=== PATIENT | female | born 1940 | race Caucasian/White ===

== ENCOUNTER → 2016-11-19 | Outpatient (CLI) | payer MEDICARE ==
--- NOTE | 2016-11-19 12:28 | XR ---
EXAMINATION TYPE: XR thoracic spine complete DATE OF EXAM ORDERED: 11/19/2016 12:23 PM HISTORY: M47.895 spondylosis thoracolumbar region. COMPARISON: None. FINDINGS: There is a mild levoscoliosis. There is a moderate kyphosis of the dorsal spine. Alignment appears normal. No fractures are seen. Th ere is diffuse degenerative disc disease and hypertrophic spondylosis. There is some spondylosis defo rmans in the upper lumbar spine. The pedicles are intact. Paraspinal soft tissues are normal. IMPRESSION: 1. NO ACUTE OSSEOUS LESION. 2. MODERATELY SEVERE DEGENERATIVE CHANGE.
== END | disposition home or self-care (01) ==
LOC: RADXRMAIN 11:54
PROVIDERS: ATTEND Internal Medicine
DX: M47.895 Other spondylosis, thoracolumbar region (principal); M51.34 Other intervertebral disc degeneration, thoracic region
CPT/HCPCS: 72072

== ENCOUNTER → 2016-12-03 | Outpatient (CLI) | payer MEDICARE ==
--- NOTE | 2016-12-03 12:06 | MR ---
EXAMINATION TYPE: MR thoracic spine wo con DATE OF EXAM ORDERED: 12/03/2016 11:53 AM HISTORY: M47.895Other spondylosis, thoracolumbar region. COMPARISON: None. FINDINGS: The spine is curved towards the right in the upper thoracic region. This may be partially secondary to positioning. Vertebral body height and alignment are maintained. There are partial fusions extending from T4 to T6 anteriorly and then T8-T9 anteriorly. There is a broad-based disc displacement at T7-8, mildly defor dirk the thecal sac without cord contact. There is a tiny left paracentral disc protrusion at T10-11 deforming the thecal sac without cord cont act. There is no other significant compressive discopathy. Intervertebral foramina appear well mainta ined. There is hypertrophic spondylosis anteriorly in the lower dorsal spine particularly at T12-L1 but als o at T11-12. The C3 vertebral body has abnormal signal within it. This may be secondary to a large he mangioma. Other causes of signal alteration are not excluded. IMPRESSION: 1. MODERATELY SEVERE DEGENERATIVE CHANGE. 2. MULTILEVEL PARTIAL FUSIONS. 3. DIFFUSE DISC DISPLACEMENT AT T7-8 AND A LEFT PARACENTRAL DISC PROTRUSION AT T10-11 DEFORMING THE T HECAL SAC WITHOUT CORD CONTACT. 4. ABNORMAL SIGNAL WITHIN THE C3 VERTEBRAL BODY. A NUCLEAR MEDICINE WHOLE BODY BONE SCAN WOULD BE SUG GESTED.
== END | disposition home or self-care (01) ==
LOC: RADMRIMAIN 10:58
PROVIDERS: ATTEND Internal Medicine
DX: M47.895 Other spondylosis, thoracolumbar region (principal); M51.24 Other intervertebral disc displacement, thoracic region
CPT/HCPCS: 72146

== ENCOUNTER → 2016-12-15 | Outpatient (CLI) | payer MEDICARE ==
--- NOTE | 2016-12-15 16:04 | NM ---
EXAMINATION TYPE: NM bone scan whole body DATE OF EXAM: 12/15/2016 3:40 PM COMPARISON: NONE HISTORY: R47.13 other spondylosis w/myelopathy cervicothoracic region Delayed whole-body scanning was performed following the injection of 26.7 mCi Tc 99m MDP. Images acq uired 4.5 hours post injection. FINDINGS: Degenerative uptake is seen about the shoulders, sternoclavicular joints, elbows, wrists, cervical, t horacic and lumbar spines. Bilateral total knee arthroplasty identified. Degenerative uptake about th e ankles and mid feet as well. IMPRESSION: Degenerative uptake noted.
== END ==
LOC: RADNMMAIN 09:47
PROVIDERS: ATTEND Internal Medicine
DX: M19.019 Primary osteoarthritis, unspecified shoulder (principal); M19.029 Primary osteoarthritis, unspecified elbow; M47.892 Other spondylosis, cervical region; M51.36 Other intervertebral disc degeneration, lumbar region; M19.079 Primary osteoarthritis, unspecified ankle and foot; M19.039 Primary osteoarthritis, unspecified wrist; M51.34 Other intervertebral disc degeneration, thoracic region; Z96.653 Presence of artificial knee joint, bilateral
CPT/HCPCS: 78306; A9503

== ENCOUNTER → 2017-04-11 | Outpatient (CLI) | payer MEDICARE ==
[2017-04-04 16:00] VITALS: BMI 31.8
[2017-04-11 11:13] VITALS: BP 165/83; PULSE 81; RESP 16; TEMP 97.7
--- NOTE | 2017-04-11 11:44 | P.CONS ---
History of Present Illness - Reason for Consult Consult date: 04/11/17 - Chief Complaint Low back pain - History of Present Illness The patient has chronic lower back pain for at least 2 years now. This pain gets worse by standing and walking around. The patient however does not wake the patient up and it is not associated with any weight loss. The patient denies any numbness or tingling in the lower extremities also she denies any weakness in the lower extremities. There is no bowel or bladder dysfunction. The lumbar spine MRI showed severe degenerative disc disease the lumbar spine. Patient now uses jamir root to help with this pain. The patient lives with her . She uses 1 g of aspirin every day for this pain. Past Medical History Past Medical History: Eye Disorder, Hypertension, Osteoarthritis (OA) Additional Past Medical History / Comment(s): corneal problems-seeing specialist , curvature of spine,back pain History of Any Multi-Drug Resistant Organisms: None Reported Past Surgical History: Adenoidectomy, Cholecystectomy, Hernia Repair, Joint Replacement, Tonsillectomy Additional Past Surgical History / Comment(s): both knees replaced, cataract surg., eye surg. for strabismus Past Anesthesia/Blood Transfusion Reactions: Previous Problems w/ Anesthesia Additional Past Anesthesia/Blood Transfusion Reaction / Comm: slow to wake up Smoking Status: Former smoker - Past Family History Mother Family Medical History: Cancer Medications and Allergies Home Medications Medication Instructions Recorded Confirmed Type Eye Support Vitamin 1 tab PO DAILY 04/04/17 04/11/17 History Losartan [Cozaar] 50 mg PO DAILY 04/04/17 04/11/17 History Multivitamin with Iron 1 each PO DAILY 04/04/17 04/11/17 History [Multivitamins with Iron] Aspirin [Aspirin EC] 1,000 mg PO DAILY PRN 04/11/17 04/11/17 History Cetirizine HCl [Zyrtec] 10 mg PO DAILY PRN 04/11/17 04/11/17 History Non-Formulary Drug [Non Formulary 2 cap PO BID 04/11/17 04/11/17 History Drug] Allergies Allergy/AdvReac Type Severity Reaction Status Date / Time No Known Allergies Allergy Unverified 04/11/17 11:00 Physical Exam Vitals: Vital Signs Temp Pulse Resp BP Pulse Ox 04/11/17 11:08 97.7 F 81 16 165/83 95 The patient is alert oriented 3, in no apparent distress. Neuro exam of the lower extremities showed normal muscle strength and normal knee reflexes however she has absent ankle reflexes bilaterally. Straight leg raising test negative bilaterally. There is no sacroiliac joint tenderness and no greater trochanter tenderness. She does have thoracic kyphosis. She has normal range of motion of the lumbar spine with more pain with extension than with flexion. Facet loading loading test was positive. Assessment and Plan Plan: This is a 77-year-old female with lower back pain due to lumbar degenerative disc disease and lumbar spondylosis without myelopathy. I asked the patient to use Tylenol instead of aspirin to treat her pain however not more than 2 gr a day. The patient also may benefit from getting lumbar medial branch block under fluoroscopic guidance and if it does take at least 50% of the patient's pain then we can plan on doing the radio Frequencyi ablation in the near future for a prolonged period of pain relief. The patient failed to respond to physical therapy previously as she states. The patient thinks that using gingerroot will help her pain and she is willing to try to for a few more weeks before she tries the injection.
== END | disposition home or self-care (01) ==
LOC: PNWHC3 10:31
PROVIDERS: ATTEND Anesthesiology
DX: M51.36 Other intervertebral disc degeneration, lumbar region (principal); M47.816 Spondylosis without myelopathy or radiculopathy, lumbar region; I10 Essential (primary) hypertension; Z79.82 Long term (current) use of aspirin; Z79.899 Other long term (current) drug therapy
CPT/HCPCS: 99211

== ENCOUNTER → 2019-05-22 | Outpatient (CLI) | payer MEDICARE ==
--- NOTE | 2019-05-23 12:20 | BD ---
EXAMINATION TYPE: Axial Bone Density DATE OF EXAM: 05/22/2019 COMPARISON: 07/22/2016 CLINICAL HISTORY: Height: 58 IN Weight: 154 LBS RISK FACTORS HISTORY OF: Active: YES Diet low in dairy products/other sources of calcium: YES Postmenopausal woman: AGE 49 MEDICATIONS: Additional Medications: VITAMINS,BLOOD PRESSURE MEDS, EXAM MEASUREMENTS: Bone mineral densitometry was performed using the [employer]. Bone mineral density as measured about the Lumbar spine is: ----- L1-L4(G/cm2): 1.083 T Score Values are as follows: ----- L2: -1.5 ----- L3: -1.4 ----- L4: -0.1 ----- L1-L4: -0.8 Bone mineral density has: Decreased -11.3% since study of: 07/22/2016 Bone mineral density about the R hip (g/cm2): 0.747 Bone mineral density about the L hip (g/cm2): 0.654 T Score values are as follows: -----R Neck: -2.1 -----L Neck: -2.8 -----R Total: -1.9 -----L Total: -2.1 Bone mineral density has: Increased 4.1% since study of: 07/22/2016 IMPRESSION: Osteopenia of the bilateral femora. NOTE: T-SCORE=SD OF THE YOUNG ADULT MEAN.
== END | disposition home or self-care (01) ==
LOC: RADBDWWP 15:32
PROVIDERS: ATTEND Internal Medicine
DX: M85.852 Other specified disorders of bone density and structure, left thigh (principal); M85.851 Other specified disorders of bone density and structure, right thigh
CPT/HCPCS: 77080

== ENCOUNTER 2021-01-22 06:23 | Observation (INO) | payer MEDICARE ==
--- NOTE | 2021-01-22 06:27 | ED ---
Chest Pain HPI - General Stated Complaint: Chest Pain Time Seen by Provider: 01/22/21 06:26 - Related Data Home Medications Medication Instructions Recorded Confirmed Eye Support Vitamin 1 tab PO DAILY 04/04/17 04/11/17 Losartan [Cozaar] 50 mg PO DAILY 04/04/17 04/11/17 Multivitamin with Iron 1 each PO DAILY 04/04/17 04/11/17 [Multivitamins with Iron] Aspirin [Aspirin EC] 1,000 mg PO DAILY PRN 04/11/17 04/11/17 Cetirizine HCl [Zyrtec] 10 mg PO DAILY PRN 04/11/17 04/11/17 Non Formulary Drug 2 cap PO BID 04/11/17 04/11/17 Allergies Allergy/AdvReac Type Severity Reaction Status Date / Time No Known Allergies Allergy Unverified 04/11/17 11:00 Review of Systems ROS Statement: Those systems with pertinent positive or pertinent negative responses have been documented in the HPI. ROS Other: All systems not noted in ROS Statement are negative. EKG Findings - EKG Comments: EKG Findings:: EKG shows sinus tachycardia 101 [address] 154 QRS 76 QTC 448 Past Medical History Past Medical History: Eye Disorder, Hypertension, Osteoarthritis (OA) Additional Past Medical History / Comment(s): corneal problems-seeing specialist, curvature of spine,back pain History of Any Multi-Drug Resistant Organisms: None Reported Past Surgical History: Adenoidectomy, Cholecystectomy, Hernia Repair, Joint Replacement, Tonsillectomy Additional Past Surgical History / Comment(s): both knees replaced, cataract surg., eye surg. for strabismus Past Anesthesia/Blood Transfusion Reactions: Previous Problems w/ Anesthesia Additional Past Anesthesia/Blood Transfusion Reaction / Comment(s): slow to wake up Past Psychological History: No Psychological Hx Reported Past Alcohol Use History: Occasional Additional Past Alcohol Use History / Comment(s): quit smoking >50 yrs. ago, smoked 4-5 yrs. Past Drug Use History: None Reported - Past Family History Mother Family Medical History: Cancer Course Vital Signs 01/22/21 06:30 Temperature 98.3 F Pulse Rate 104 H Respiratory 18 Rate Blood Pressure 107/86 O2 Sat by Pulse 93 L Oximetry Disposition Clinical Impression: Atypical chest pain, Chest pain Disposition: ADMITTED IP TO THIS HOSP Condition: Fair Is patient prescribed a controlled substance at d/c from ED?: No Referrals: Justo Dahl MD [Primary Care Provider] - 1-2 days
[2021-01-22 07:25] LABS: Basophils % (A) 0 %; Eosinophils % (A) 1 %; HCT 46.1 % (34.0-46.0); HGB 15.3 gm/dL (11.4-16.0); Lymphocytes # (A) 0.5 k/uL (1.0-4.8); Lymphocytes % (A) 7 %; MCHC 33.2 g/dL (31.0-37.0); MCV 93.2 fL (80.0-100.0); Mean Platelet Volume 9.2; Monocytes # (A) 0.1 k/uL (0-1.0); Monocytes % (A) 2 %; Neutrophils # (A) 6.2 k/uL (1.3-7.7); Neutrophils % (A) 90 %; Platelet Count 191 k/uL (150-450); RBC 4.94 m/uL (3.80-5.40); RDW 13.1 % (11.5-15.5); WBC 6.9 k/uL (3.8-10.6)
[2021-01-22] MEDS ORDERED: MORPHINE SULFATE 4 MG/ML SYRINGE IV PRN (07:32)
[2021-01-22] MEDS ORDERED: NITROGLYCERIN SL TABS 0.4 MG TAB SUBLINGUAL PRN (07:32)
[2021-01-22] MEDS ORDERED: ASPIRIN 81 MG PO STA (07:32)
[2021-01-22 07:39] LABS: Partial Thromboplastin Time 22.6 sec (22.0-30.0); Prothrombin Time 10.5 sec (9.0-12.0)
[2021-01-22 07:43] LABS: Potassium 4.1 mmol/L (3.5-5.1)
--- NOTE | 2021-01-22 07:43 | XR ---
EXAMINATION TYPE: XR chest 2V DATE OF EXAM: 01/22/2021 COMPARISON: None HISTORY: 81-year-old female with cough, nauseated shortness of breath TECHNIQUE: Frontal and lateral views of the chest are obtained. FINDINGS: There is a large hiatal hernia with air-fluid level. Heart size appears within normal limi ts. Atherosclerotic aorta. No pleural effusion, focal consolidation or pneumothorax. There is bilater al peribronchial cuffing and prominence of the central pulmonary vasculature. A portion of this may r epresent chronic interstitial lung changes but underlying bronchitis is not excluded. Osteopenia and degenerative changes of the thoracic spine with accentuated kyphosis. IMPRESSION: 1. Large intrathoracic hiatal hernia with air-fluid level. 2. Coarse interstitial markings are likely chronic interstitial lung changes. Mild superimposed bronc hitis with peribronchial cuffing and thickening is not excluded.
[2021-01-22 07:46] LABS: Albumin 4.4 g/dL (3.5-5.0); Calcium 9.8 mg/dL (8.4-10.2); Magnesium 2.2 mg/dL (1.6-2.3); Total Bilirubin 0.6 mg/dL (0.2-1.3)
[2021-01-22] MEDS ORDERED: ONDANSETRON 4 MG/2 ML VIAL IVP PRN (09:38)
[2021-01-22] MEDS: ACETAMINOPHEN TAB 325 MG TAB PO PRN ×2 (09:57→21:26)
[2021-01-22] MEDS: LOSARTAN 50 MG TAB PO SCH ×2 (09:58→21:19)
--- NOTE | 2021-01-22 12:50 | ECHOF ---
Referral Reason:LVF MEASUREMENTS -------- HEIGHT: 132.1 cm WEIGHT: 69.9 kg BP: IVSd: 1.2 cm (0.6 - 1.1) LVIDd: 3.6 cm (3.9 - 5.3) LVPWd: 1.2 cm (0.6 - 1.1) IVSs: 1.4 cm LVIDs: 2.4 cm LVPWs: 1.4 cm LAESV Index (A-L): 23.36 ml/m Ao Diam: 2.3 cm (2.0 - 3.7) AV Cusp: 1.7 cm (1.5 - 2.6) MV EXCURSION: 11.901 mm (> 18.000) MV EF SLOPE: 79 mm/s (70 - 150) EPSS: 0.4 cm MV E Darrell: 0.78 m/s MV DecT: 293 ms MV A Darrell: 1.08 m/s MV E/A Ratio: 0.72 RAP: 5.00 mmHg RVSP: 19.78 mmHg FINDINGS -------- Sinus rhythm. This was a technically good study. LV size, wall thickness and systolic function are normal, with an EF greater than 55%. The left ainsley tricular size is normal. The right ventricle is normal in size. Normal LA size by volume 22+/-6 ml/m2. The right atrial size is normal. There is mild aortic valve sclerosis. There is no evidence of aortic regurgitation. Mild mitral regurgitation is present. Mild tricuspid regurgitation present. Right ventricular systolic pressure is normal at < 35 mmHg. The pulmonic valve was not well visualized. The aortic root size is normal. There is no pericardial effusion. CONCLUSIONS -------- 1. LV size, wall thickness and systolic function are normal, with an EF greater than 55%. 2. The left ventricular size is normal. 3. The right ventricle is normal in size. 4. Normal LA size by volume 22+/-6 ml/m2. 5. The right atrial size is normal. 6. There is mild aortic valve sclerosis. 7. Mild mitral regurgitation is present. 8. Mild tricuspid regurgitation present. 9. The pulmonic valve was not well visualized. 10. The aortic root size is normal. 11. There is no pericardial effusion. WIRE MESH KNITTER: Claire Castrejon RDCS
--- NOTE | 2021-01-22 13:35 | P.HPIM ---
History of Present Illness H&P Date: 01/22/21 Chief Complaint: Chest pain, vomiting HISTORY OF PRESENT ILLNESS This is an 81-year-old female patient of Dr. Marin with past medical history of hypertension, hyperlipidemia, varicose veins. Patient gives history that she developed vomiting that started around 8:30 last night continued every 2 hours until 5:30 in the morning. She also developed chest pain at the same time that was a constant ache. Her daughter states her blood pressure has been low at home and amlodipine was discontinued. She is continued on losartan 50 mg twice daily. Patient has an appointment scheduled with Dr. Bedoya today at 1 PM. She had a last stress test done in the office about one year ago. She complains of little headache. No diarrhea. Nausea seems to be improving. Patient came into the [facility] emergency center for evaluation. Patient was afebrile, heart rate 104, blood pressure 107/86, pulse ox 93% on room air. EKG is sinus rhythm with no acute ST changes. CBC was unremarkable. INR 1.0. Electrolytes were normal. BUN 34 and creatinine 0.89. Blood sugar 170. Patient does not have history of diabetes. Liver function tests were negative. Troponin negative on 2 draws. ProBNP 300. Lipase 114. Coronavirus PCR not detected. Echocardiogram reveals EF greater than 55%, mild aortic valve sclerosis, mild mitral regurgitation, mild tricuspid regurgitation. Chest x-ray reveals large intrathoracic hiatal hernia. Coarse interstitial markings likely chronic interstitial lung changes. Mild superimposed bronchitis with peribronchial cuffing and thickening is not excluded. REVIEW OF SYSTEMS Constitutional: No fever, no chills, no night sweats. No weight change. No weakness, fatigue or lethargy. No daytime sleepiness. EENT: No headache. No blurred vision or double vision, no loss of vision. No loss of Hearing, no ringing in the ears, no dizziness. No nasal drainage or congestion. No epistaxis. No sore throat. Lungs: No shortness of breath, cough, no sputum production. No wheezing. Cardiovascular: No chest pain, no lower extremity edema. No palpitations. No paroxysmal nocturnal dyspnea. No orthopnea. No lightheadedness or dizziness. No syncopal episodes. Abdominal: No abdominal pain. No nausea, vomiting. No diarrhea. No constipation. No bloody or tarry stools.. No loss of appetite. Genitourinary: No dysuria, increased frequency, urgency. No urinary retention. Musculoskeletal: No myalgias. No muscle weakness, no gait dysfunction, no frequent falls. No back pain. No neck pain. Integumentary: No wounds, no lesions. No rash or pruritus. No unusual bruising. No change in hair or nails. Neurologic: No aphasia. No facial droop. No change in mentation. No head injury. No headache. No paralysis. No paresthesia. Psychiatric: No depression. No anxiety. No mood swings. Endocrine: No abnormal blood sugars. No weight change. No excessive sweating or thirst. No cold intolerance. 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 No alcohol use, marijuana one he use, illicit drug use. FAMILY HISTORY Father at age 45 from diverticulitis and peritonitis. Mother at age 81 from Parkinson's and heart failure. Patient has 2 brothers and one has coronary artery disease and the other with COPD. Patient has one sister and she is alive with history of Parkinson's. Patient has 4 sons with no major medical problems. PHYSICAL EXAMINATION Gen: This is an 81-year-old female. Patient is resting on the ER stretcher and appears to be comfortable and in no acute distress. [id number] is at the bedside. HEENT: Head is atraumatic, normocephalic. Pupils equal, round. Sclerae is anicteric. NECK: Supple. No JVD. No lymphadenopathy. No thyromegaly. LUNGS: Clear to auscultation. No wheezes or rhonchi. No intercostal retractions. HEART: First heart sound is depressed second heart sound is normal. There is a 2/6 systolic ejection murmur at the left sternal border. No S3, S4. ABDOMEN: Soft. Bowel sounds are present. No masses. No abdominal tenderness. EXTREMITIES: No pedal edema. No calf tenderness. Dorsalis pedis +2 bilaterally . NEUROLOGICAL: Patient is awake, alert and oriented x3. Cranial nerves 2 through 12 are grossly intact. ASSESSMENT AND PLAN 1. Chest pain. Repeat troponin, consult cardiology. 2. Vomiting of unclear etiology, possible viral gastritis, resolved. 3. Hypertension with recent low blood pressure readings. Patient is off amlodipine. Continue losartan at 50 mg twice daily with parameters. 4. Hyperlipidemia. Continue low-cholesterol diet, exercise and weight loss. 5. Varicose veins of the bilateral lower extremities, stable. JERICHO hose. 6. Spondylosis of the lumbar sacral spine, stable. 7. Gastroesophageal reflux disease and hiatal hernia. Protonix 40 mg daily. 8. DVT prophylaxis. Heparin subcu. Patient placed as an observation status. DISCHARGE PLAN Home. Impression and plan of care have been directed as dictated by the signing physician. Parul Roberts nurse practitioner acting as scribe for signing physician. Past Medical History Past Medical History: Eye Disorder, Hypertension, Osteoarthritis (OA) Additional Past Medical History / Comment(s): corneal problems-seeing specialist, curvature of spine,back pain History of Any Multi-Drug Resistant Organisms: None Reported Past Surgical History: Adenoidectomy, Cholecystectomy, Hernia Repair, Joint Replacement, Tonsillectomy Additional Past Surgical History / Comment(s): both knees replaced, cataract surg., eye surg. for strabismus Past Anesthesia/Blood Transfusion Reactions: Previous Problems w/ Anesthesia Additional Past Anesthesia/Blood Transfusion Reaction / Comment(s): slow to wake up Past Psychological History: No Psychological Hx Reported Past Alcohol Use History: Occasional Additional Past Alcohol Use History / Comment(s): quit smoking >50 yrs. ago, smoked 4-5 yrs. Past Drug Use History: None Reported - Past Family History Mother Family Medical History: Cancer Medications and Allergies Home Medications Medication Instructions Recorded Confirmed Type Losartan [Cozaar] 50 mg PO BID 04/04/17 04/11/17 History Furosemide [Lasix] 40 mg PO DAILY 01/22/21 01/22/21 History Potassium Chloride [Klor-Con 20] 20 meq PO DAILY 01/22/21 01/22/21 History Allergies Allergy/AdvReac Type Severity Reaction Status Date / Time No Known Allergies Allergy Verified 01/22/21 07:57 Physical Exam Vitals: Vital Signs Temp Pulse Resp BP Pulse Ox 01/22/21 06:30 98.3 F 104 H 18 107/86 93 L Intake and Output 01/21/21 01/22/21 01/22/21 22:59 06:59 14:59 Other: Weight 69.853 kg Results CBC & Chem 7: 01/22/21 07:08 01/22/21 07:08 Labs: Abnormal Lab Results - Last 24 Hours (Table) 01/22/21 01/22/21 Range/Units 07:08 07:08 Hct 46.1 H (34.0-46.0) % Lymphocytes # 0.5 L (1.0-4.8) k/uL BUN 34 H (7-17) mg/dL Glucose 170 H (74-99) mg/dL
[2021-01-22 17:04] LABS: Hemoglobin A1C 5.5 % (4.0-6.0)
--- NOTE | 2021-01-22 19:28 | CONS ---
CONSULTATION Anahi is an 81-year-old lady with history of hypertension who presents to the hospital with symptoms of chest pain. Her chest discomfort is sharp, precordial, associated with some nausea and vomiting. At the time of my evaluation, she appears comfortable at rest and did not seem to be in any distress. EKG revealed sinus tachycardia without significant ST-T wave changes. First set of cardiac enzymes was negative. BNP was normal. Hemoglobin was normal. Given the unexplained chest discomfort, I advised the patient to have further troponins done, obtain an echocardiogram and schedule her for a stress test tomorrow. PAST MEDICAL HISTORY: Significant for hypertension. CURRENT MEDICATIONS: Include Lasix, potassium, losartan 50 b.i.d. ALLERGIES: There are no known drug allergies. FAMILY HISTORY: Negative for premature coronary artery disease. SOCIAL HISTORY: Negative for smoking, EtOH abuse, or drug abuse. REVIEW OF SYSTEMS: HEENT is unremarkable. CARDIAC as described above. RESPIRATORY negative. GI negative. negative. ALLERGY/IMMUNOLOGY: None. SKIN negative. MUSCULOSKELETAL negative. ENDOCRINE negative. HEMATOLOGICAL: Negative. DERM negative. CONSTITUTIONAL negative. ONCOLOGICAL negative. THROUGH FREIGHT ENGINEER: Negative. PHYSICAL EXAMINATION: Patient is comfortable at rest. Afebrile. Heart rate is 76 beats per minute. Blood pressure is 130/76, respiratory rate is 18. O2 saturation is 96% on room air. There is no jugular venous distention. Carotid upstroke is normal. There is no bruit. Chest exam reveals good air entry bilaterally. Heart exam reveals first and second heart sounds. No gallop. No murmur. ABDOMEN: Soft. Exam of extremities did not reveal any edema. Peripheral pulses are felt. LABS: Labs show a hemoglobin of 15.3, potassium is 4.1. Troponin is negative. Coronavirus test is negative. ASSESSMENT: Precordial chest pain. PLAN: I will rule out myocardial infarction and schedule her for a stress echo tomorrow. MMODL / IJN: [id number] /
[2021-01-22] MEDS: HEPARIN SODIUM,PORCINE/PF 5,000 UNIT/0.5 ML SYRINGE SQ SCH (21:19)
[2021-01-23] MEDS ORDERED: DOBUTamine DRIP for NUC MED 500 MG in DEXTROSE/WATER 1 250ML.BAG IV PRN (06:00)
[2021-01-23] MEDS: ACETAMINOPHEN TAB 325 MG TAB PO PRN (07:10)
[2021-01-23] MEDS ORDERED: PANTOPRAZOLE 40 MG TABLET PO SCH (07:30)
[2021-01-23 08:16] VITALS: TEMP 97.9
[2021-01-23] MEDS ORDERED: ASPIRIN 325 MG TAB PO SCH (09:00)
[2021-01-23 11:39] VITALS: BP 125/83; PULSE 79; RESP 17
[2021-01-23] MEDS: HEPARIN SODIUM,PORCINE/PF 5,000 UNIT/0.5 ML SYRINGE SQ SCH (11:40)
[2021-01-23] MEDS: LOSARTAN 50 MG TAB PO SCH (11:40)
--- NOTE | 2021-01-23 12:43 | P.PN ---
Subjective This is a pleasant 81-year-old female past medical history significant for hypertension. She is seen and examined resting comfortably in no acute distress. She has no symptoms of chest discomfort, shortness of breath, dizziness or palpitations. She states she slept well. Blood pressure 125/83 heart rate 79 afebrile maintaining oxygen saturation on room air. Laboratory data reviewed, cardiac enzymes negative 3 and hemoglobin A1c 5.5. Echocardiogram obtained reveals preserved LV systolic function with ejection fraction greater than 55%, mild MR and mild TR noted. GENERAL: Well-appearing, well-nourished and in no acute distress. NECK: Supple without JVD or thyromegaly. LUNGS: Breath sounds clear to auscultation bilaterally. Respiration equal and unlabored. No wheezes, rales or rhonchi. HEART: Regular rate and rhythm without murmurs, rubs or gallops. S1 and S2 heard. EXTREMITIES: Normal range of motion, no edema. No clubbing or cyanosis. Peripheral pulses intact. ASSESSMENT Chest pain Hypertension PLAN Dobutamine stress echocardiogram obtained today was negative for evidence of stress-induced ischemia. The patient is stable to be discharged home and follow-up in the office in 2 weeks. Nurse Practitioner note has been reviewed, I agree with a documented findings and plan of care. Patient was seen and examined. Objective - Vital Signs Vital signs: Vital Signs Temp 97.9 F 01/23/21 11:36 Pulse 79 01/23/21 11:36 Resp 17 01/23/21 11:36 BP 125/83 01/23/21 11:36 Pulse Ox 93 L 01/23/21 11:36 Intake & Output 01/22/21 01/23/21 01/23/21 18:59 06:59 18:59 Weight 69.853 kg 69.85 kg Other: # Voids 1 - Labs CBC & Chem 7: 01/22/21 07:08 01/22/21 07:08
[2021-01-23 13:30] LABS: Chol/HDL Ratio 2.86; Cholesterol 220 mg/dL (0-200); Triglycerides <50.0 mg/dL (0.0-149.0)
--- NOTE | 2021-01-23 17:00 | ECHOS ---
STRESS ECHOCARDIOGRAM LUMASON: N/A Vial INDICATIONS: Chest pain. MEDICATIONS: BASELINE HEART RATE: 71 BASELINE BLOOD PRESSURE: 147/78 MAXIMUM HEART RATE: 127 MAXIMUM BLOOD PRESSURE: 147/78 85% MPHR: 117 100% MPHR: 138 METS: N/A MAXIMUM STAGE REACHED: TOTAL EXERCISE TIME: 10:30 CLINICAL INFORMATION: Baseline EKG shows sinus rhythm, normal axis, normal intervals. Patient was given intravenous dobutamine over a period of 10 1/2 minutes as per protocol, achieving 93% of predicted maximal heart rate without chest pain or diagnostic ST-segment depression. Baseline echo shows normal left ventricular size, wall motion and systolic function. Post dobutamine infusion there is normal hyperdynamic response of all segments of myocardium noted. CONCLUSIONS: 1. Negative stress test by EKG criteria. 2. Negative Dobutamine stress echo. MMODL / IJN: [id number] /
--- NOTE | 2021-01-24 07:20 | DS ---
DISCHARGE SUMMARY DATE OF SERVICE: 01/23/2021 Please note I am covering for Dr. Dahl. FINAL DIAGNOSIS: 1. Chest pain. Myocardial function ruled out. Possibly musculoskeletal with negative stress test. 2. Vomiting possibly acute gastritis or hiatal hernia. 3. Hypertension. 4. Hyperlipidemia. 5. History of varicose veins. 6. Spondylosis. 7. History of gastroesophageal reflux disease. DISCHARGE DISPOSITION: The patient will be discharged in stable condition with guarded prognosis. Cleared by Cardiology. HISTORY OF PRESENT ILLNESS: This 81-year-old woman with a past medical history of multiple medical problems was admitted with left-sided chest pain, multiple symptomatology as mentioned earlier. Myocardial infarction ruled out. Cardiology saw the patient. A stress test was done. Final report is pending at this time but however the patient was cleared. Per Cardiology, dobutamine stress echo was negative and the patient discharged in stable condition. DISCHARGE INSTRUCTIONS: Diet is cardiac. Activity limited until followup. Follow up with Dr. Dahl in 2-3 days. Follow with Cardiology as recommended. DISCHARGE MEDICATIONS: 1. Cozaar 50 mg p.o. b.i.d. 2. K-Dur 20 mg p.o. daily. 3. Lasix 40 mg p.o. daily. 4. Protonix 40 mg p.o. daily. MMODL / IJN: [id number] /
== END 2021-01-23 13:30 ==
LOC: EC 06:23 → 6NMEDSUR 07:02
PROVIDERS: ADMIT Internal Medicine; ATTEND Internal Medicine
DX: R07.89 Other chest pain (principal); R11.2 Nausea with vomiting, unspecified; I10 Essential (primary) hypertension; R03.1 Nonspecific low blood-pressure reading; I08.3 Combined rheumatic disorders of mitral, aortic and tricuspid valves; K21.9 Gastro-esophageal reflux disease without esophagitis; M47.16 Other spondylosis with myelopathy, lumbar region; K44.9 Diaphragmatic hernia without obstruction or gangrene; R51.9 Headache, unspecified; R00.0 Tachycardia, unspecified; H18.9 Unspecified disorder of cornea; M19.90 Unspecified osteoarthritis, unspecified site; M43.9 Deforming dorsopathy, unspecified; I70.0 Atherosclerosis of aorta; E78.5 Hyperlipidemia, unspecified; I83.90 Asymptomatic varicose veins of unspecified lower extremity; Z20.822 Contact with and (suspected) exposure to COVID-19; Z79.82 Long term (current) use of aspirin; Z79.899 Other long term (current) drug therapy; Z90.49 Acquired absence of other specified parts of digestive tract; Z87.891 Personal history of nicotine dependence; Z98.49 Cataract extraction status, unspecified eye; Z96.653 Presence of artificial knee joint, bilateral; Z90.711 Acquired absence of uterus with remaining cervical stump; Z98.890 Other specified postprocedural states; Z82.0 Family history of epilepsy and other diseases of the nervous system; Z82.49 Family history of ischemic heart disease and other diseases of the circulatory system; Z82.5 Family history of asthma and other chronic lower respiratory diseases; Z83.79 Family history of other diseases of the digestive system; Z80.9 Family history of malignant neoplasm, unspecified
CPT/HCPCS: 96372 ×2; 93005 ×2; 96374; 99285; 36415; 93306; 93351; 83880; 80061; 80053; 83690; 83735; 84484; 85025; 85610; 85730; 83036; 87635; 71046; G0378 ×2; J1250; J2405; J1644 ×2

== ENCOUNTER 2022-05-06 07:29 | Inpatient (IN) | payer MEDICARE ==
[2022-05-06] MEDS ORDERED: SODIUM CHLORIDE 0.9% 500 ML 500 ML IV STA (07:37)
[2022-05-06] MEDS ORDERED: METOCLOPRAMIDE 5 MG/ML 2 ML VIAL IVP STA (07:37)
[2022-05-06] MEDS ORDERED: FAMOTIDINE 20 MG/2 ML VIAL IV STA (07:38)
--- NOTE | 2022-05-06 07:45 | ED ---
Nausea/Vomiting/Diarrhea HPI - General Chief complaint: Nausea/Vomiting/Diarrhea Stated complaint: vomiting Time Seen by Provider: 05/06/22 07:30 Source: patient, family (son), RN notes reviewed Limitations: no limitations - History of Present Illness Initial comments: This is an 82-year-old female who presents to the emergency department for nausea and vomiting. States that symptoms started last night and she is unable to keep anything down. She went to [facility] for lunch yesterday and had a chicken sandwich. She ate half of it there and brought half of it home. She began vomiting shortly after she ate the second half at home. She is unsure if this may be related to food poisoning or another problem. She has pain in the center of the abdomen, which she attributes to all of the vomiting. Denies any changes in bowel movements. EMS noted that the patient had an oxygen saturation between 88 and 92% on arrival. They subsequently placed her on 2 L of oxygen v ia nasal cannula. She was started on 500 mL of normal saline and given a dose of Zofran by EMS. Despite the Zofran, she states that she continues to feel nauseous. Patient states that she does have problems breathing every now and then, but has not been diagnosed with any pulmonary conditions. Denies any chest pain. Denies any fevers, chills, sore throat, cough, chest pain, palpitations, back pain, or headaches. MD complaint: nausea, vomiting Onset/Timin -: days(s) Associated Abdominal Pain: Yes Location: periumbilical Context: possible food poisoning - Related Data Home Medications Medication Instructions Recorded Confirmed Losartan [Cozaar] 50 mg PO BID 04/04/17 05/06/22 Furosemide [Lasix] 40 mg PO DAILY 01/22/21 05/06/22 Potassium Chloride [Klor-Con 20] 20 meq PO DAILY 01/22/21 05/06/22 Cetirizine HCl [Zyrtec] 10 mg PO DAILY PRN 05/06/22 05/06/22 Allergies Allergy/AdvReac Type Severity Reaction Status Date / Time No Known Allergies Allergy Verified 05/06/22 10:54 Review of Systems ROS Statement: Those systems with pertinent positive or pertinent negative responses have been documented in the HPI. ROS Other: All systems not noted in ROS Statement are negative. Past Medical History Past Medical History: Eye Disorder, Hypertension, Osteoarthritis (OA) Additional Past Medical History / Comment(s): corneal problems-seeing specialist, curvature of spine,back pain History of Any Multi-Drug Resistant Organisms: None Reported Past Surgical History: Adenoidectomy, Cholecystectomy, Hernia Repair, Joint Replacement, Tonsillectomy Additional Past Surgical History / Comment(s): both knees replaced, cataract surg., eye surg. for strabismus Past Anesthesia/Blood Transfusion Reactions: Previous Problems w/ Anesthesia Additional Past Anesthesia/Blood Transfusion Reaction / Comment(s): slow to wake up Past Psychological History: No Psychological Hx Reported Past Alcohol Use History: Occasional Additional Past Alcohol Use History / Comment(s): quit smoking >50 yrs. ago, smoked 4-5 yrs. Past Drug Use History: None Reported - Past Family History Mother Family Medical History: Cancer General Exam General appearance: alert, other (drowsy) Head exam: Present: atraumatic, normocephalic, normal inspection Respiratory exam: Present: normal lung sounds bilaterally. Absent: respiratory distress, wheezes, rales, rhonchi, stridor Cardiovascular Exam: Present: regular rate, normal rhythm, normal heart sounds. Absent: systolic murmur, diastolic murmur, rubs, gallop, clicks GI/Abdominal exam: Present: soft, hyperactive bowel sounds. Absent: distended, tenderness, guarding, rebound, rigid Neurological exam: Present: alert, oriented X3, CN II-XII intact Psychiatric exam: Present: normal affect, normal mood Skin exam: Present: warm, dry, intact, normal color. Absent: rash Course Vital Signs 05/06/22 05/06/22 05/06/22 07:36 07:52 08:15 Temperature 98.5 F Pulse Rate 99 97 Respiratory 18 18 Rate Blood Pressure 184/104 154/86 O2 Sat by Pulse 90 L 97 96 Oximetry 05/06/22 05/06/22 05/06/22 09:15 10:15 11:30 Temperature Pulse Rate 98 96 90 Respiratory 18 18 18 Rate Blood Pressure 156/76 165/92 162/93 O2 Sat by Pulse 96 96 95 Oximetry 05/06/22 12:15 Temperature Pulse Rate 96 Respiratory 18 Rate Blood Pressure 147/85 O2 Sat by Pulse 92 L Oximetry Medical Decision Making - Medical Decision Making This is an 82-year-old female who presents to the emergency department for nausea and vomiting. CBC reveals leukocytosis. Patient was given an additional 500 mL of normal saline and a dose of Reglan. Chest x-ray obtained due to the hypoxemia. Chest x-ray revealed concerns for a CHF exacerbation due to card iomegaly and bilateral mild interstitial infiltrates. Patient continued to have nausea and increasing abdominal pain despite the Zofran and Reglan. Computed tomography scan of the abdomen and pelvis was obtained, revealing concerns for a gastric volvulus. I spoke with on-call general surgery, Dr. Fregoso, who advised I speak with Dr. Cotton, as he does not perform these procedures. I spoke with Dr. Cotton, who advised the patient have an NG tube placed with admission to him for surgical intervention. This case was discussed in detail with the attending ED physician. Presentation, findings, and treatment plan discussed in detail as well. - Lab Data Result diagrams: 05/06/22 07:47 05/06/22 07:47 Lab Results 05/06/22 05/06/22 05/06/22 Range/Units 07:47 07:47 07:47 WBC 11.9 H (3.8-10.6) k/uL RBC 4.89 (3.80-5.40) m/uL Hgb 15.0 (11.4-16.0) gm/dL Hct 47.2 H (34.0-46.0) % MCV 96.4 (80.0-100.0) fL MCH 30.6 (25.0-35.0) pg MCHC 31.8 (31.0-37.0) g/dL RDW 12.7 (11.5-15.5) % Plt Count 186 (150-450) k/uL MPV 9.6 Neutrophils % 90 % Lymphocytes % 6 % Monocytes % 4 % Eosinophils % 0 % Basophils % 0 % Neutrophils # 10.7 H (1.3-7.7) k/uL Lymphocytes # 0.7 L (1.0-4.8) k/uL Monocytes # 0.4 (0-1.0) k/uL Eosinophils # 0.0 (0-0.7) k/uL Basophils # 0.0 (0-0.2) k/uL Sodium 142 (137-145) mmol/L Potassium 3.9 (3.5-5.1) mmol/L Chloride 103 (98-107) mmol/L Carbon Dioxide 26 (22-30) mmol/L Anion Gap 13 mmol/L BUN 21 H (7-17) mg/dL Creatinine 0.83 (0.52-1.04) mg/dL Est GFR (CKD-EPI)AfAm 76 (>60 ml/min/1.73 sqM) Est GFR (CKD-EPI)NonAf 66 (>60 ml/min/1.73 sqM) Glucose 204 H (74-99) mg/dL Calcium 9.1 (8.4-10.2) mg/dL Total Bilirubin 0.7 (0.2-1.3) mg/dL AST 27 (14-36) U/L ALT 15 (4-34) U/L Alkaline Phosphatase 78 (38-126) U/L Troponin I (0.000-0.034) ng/mL NT-Pro-B Natriuret Pep pg/mL Total Protein 6.5 (6.3-8.2) g/dL Albumin 4.2 (3.5-5.0) g/dL Amylase 52 (30-110) U/L Lipase 49 (23-300) U/L Urine Color Yellow Urine Appearance Clear (Clear) Urine pH 5.0 (5.0-8.0) Ur Specific [place] 1.028 (1.001-1.035) Urine Protein 1+ H (Negative) Urine Glucose (UA) Negative (Negative) Urine Ketones 1+ H (Negative) Urine Blood Negative (Negative) Urine Nitrite Negative (Negative) Urine Bilirubin Negative (Negative) Urine Urobilinogen <2.0 (<2.0) mg/dL Ur Leukocyte Esterase Negative (Negative) Urine WBC 1 (0-5) /hpf Ur Squamous Epith Cells 1 (0-4) /hpf Hyaline Casts 1 (0-2) /lpf Urine Mucus Rare H (None) /hpf Coronavirus (PCR) (Not Detectd) 05/06/22 05/06/22 05/06/22 Range/Units 07:47 07:47 07:47 WBC (3.8-10.6) k/uL RBC (3.80-5.40) m/uL Hgb (11.4-16.0) gm/dL Hct (34.0-46.0) % MCV (80.0-100.0) fL MCH (25.0-35.0) pg MCHC (31.0-37.0) g/dL RDW (11.5-15.5) % Plt Count (150-450) k/uL MPV Neutrophils % % Lymphocytes % % Monocytes % % Eosinophils % % Basophils % % Neutrophils # (1.3-7.7) k/uL Lymphocytes # (1.0-4.8) k/uL Monocytes # (0-1.0) k/uL Eosinophils # (0-0.7) k/uL Basophils # (0-0.2) k/uL Sodium (137-145) mmol/L Potassium (3.5-5.1) mmol/L Chloride (98-107) mmol/L Carbon Dioxide (22-30) mmol/L Anion Gap mmol/L BUN (7-17) mg/dL Creatinine (0.52-1.04) mg/dL Est GFR (CKD-EPI)AfAm (>60 ml/min/1.73 sqM) Est GFR (CKD-EPI)NonAf (>60 ml/min/1.73 sqM) Glucose (74-99) mg/dL Calcium (8.4-10.2) mg/dL Total Bilirubin (0.2-1.3) mg/dL AST (14-36) U/L ALT (4-34) U/L Alkaline Phosphatase (38-126) U/L Troponin I 0.023 (0.000-0.034) ng/mL NT-Pro-B Natriuret Pep 702 pg/mL Total Protein (6.3-8.2) g/dL Albumin (3.5-5.0) g/dL Amylase (30-110) U/L Lipase (23-300) U/L Urine Color Urine Appearance (Clear) Urine pH (5.0-8.0) Ur Specific [place] (1.001-1.035) Urine Protein (Negative) Urine Glucose (UA) (Negative) Urine Ketones (Negative) Urine Blood (Negative) Urine Nitrite (Negative) Urine Bilirubin (Negative) Urine Urobilinogen (<2.0) mg/dL Ur Leukocyte Esterase (Negative) Urine WBC (0-5) /hpf Ur Squamous Epith Cells (0-4) /hpf Hyaline Casts (0-2) /lpf Urine Mucus (None) /hpf Coronavirus (PCR) Not Detected (Not Detectd) - Radiology Data Radiology results: report reviewed, image reviewed Disposition Clinical Impression: Acute gastric volvulus Disposition: ADMITTED IP TO THIS HOSP
[2022-05-06 08:17] LABS: Basophils % (A) 0 %; Eosinophils % (A) 0 %; HCT 47.2 % (34.0-46.0); Lymphocytes # (A) 0.7 k/uL (1.0-4.8); Lymphocytes % (A) 6 %; MCH 30.6 pg (25.0-35.0); MCHC 31.8 g/dL (31.0-37.0); MCV 96.4 fL (80.0-100.0); Mean Platelet Volume 9.6; Monocytes # (A) 0.4 k/uL (0-1.0); Monocytes % (A) 4 %; Neutrophils # (A) 10.7 k/uL (1.3-7.7); Neutrophils % (A) 90 %; Platelet Count 186 k/uL (150-450); RBC 4.89 m/uL (3.80-5.40); RDW 12.7 % (11.5-15.5); WBC 11.9 k/uL (3.8-10.6)
--- NOTE | 2022-05-06 08:21 | XR ---
EXAMINATION TYPE: XR chest 2V DATE OF EXAM: 05/06/2022 COMPARISON: Chest x-ray January 22, 2021 HISTORY: Difficulty in breathing. TECHNIQUE: Frontal and lateral views of the chest are obtained. FINDINGS: The osseous structures remain demineralized. Exaggerated thoracic kyphosis redemonstrated. Cholecystectomy clips noted on lateral view. Retrocardiac opacity consistent large hiatal hernia or intrathoracic stomach appears even more prominent from prior. There is new cardiomegaly with increase d markings bilaterally. No pleural effusion or pneumothorax is present. IMPRESSION: Findings consistent with CHF exacerbation as there is cardiomegaly with bilateral mild i nterstitial edema noted. Correlate clinically.
[2022-05-06 08:25] LABS: Albumin 4.2 g/dL (3.5-5.0); Calcium 9.1 mg/dL (8.4-10.2); Potassium 3.9 mmol/L (3.5-5.1); Total Bilirubin 0.7 mg/dL (0.2-1.3); Total Protein 6.5 g/dL (6.3-8.2)
[2022-05-06 09:20] LABS: Appearance,Urine Clear (Clear); Bilirubin,Urine Negative (Negative); Blood,Urine Negative (Negative); Color,Urine Yellow; Glucose,Urine (UA) Negative (Negative); Hyaline Casts,Urine 1 /lpf (0-2); Ketones,Urine 1+ (Negative); Leukocyte Esterase,Urine Negative (Negative); Mucus,Urine Rare /hpf; Nitrite,Urine Negative (Negative); Protein,Urine 1+ (Negative); Specific Gravity,Urine 1.028 (1.001-1.035); Squamous Epithelial Cell,Urine 1 /hpf (0-4); Urobilinogen,Urine <2.0 mg/dL (<2.0); WBC,Urine 1 /hpf (0-5)
[2022-05-06] MEDS ORDERED: ONDANSETRON 4 MG/2 ML VIAL IVP STA (09:32)
[2022-05-06] MEDS ORDERED: KETOROLAC 15 MG/ML 1 ML VIAL IVP STA (09:32)
--- NOTE | 2022-05-06 10:21 | CT ---
EXAMINATION TYPE: CT abdomen pelvis w con DATE OF EXAM: 05/06/2022 HISTORY: abdominal pain, nausea, vomiting CT DLP: 808.2mGycm Automated Exposure Control for Dose Reduction was Utilized. CONTRAST: CT scan of the abdomen and pelvis is performed with IV Contrast, patient injected with 100 mL of Isov ue 300. COMPARISON: None. FINDINGS: LUNG BASES: Cardiomegaly is present. Calcification at the level of the aortic valve. LIVER/GB: Cholecystectomy clips. PANCREAS: Mild to moderate generalized atrophy with some distal body/tail calcifications. SPLEEN: No significant abnormality is seen. ADRENALS: No significant abnormality is seen. KIDNEYS: Symmetric cortical medullary uptake and excretion with right hilar fullness suspected centra l parapelvic cyst. No right-sided hydroureter. BOWEL: Prominent diverticulosis left and sigmoid colon. Some scattered diverticula in the transverse colon. No CT evidence for acute diverticulitis. No suspicious small or large bowel dilatation. Surgic al clip right lower quadrant coronal image 54. Large hiatal hernia confirmed as seen on recent ultrasound. There is fluid distended stomach above an d below the diaphragm. And the gastroduodenal junction appears to right aspect of the large hiatal he rnia and is nondistended from level of the diaphragm into the duodenal sweep. Distal esophagus juncti on with the stomach is likely to left of midline coronal image 60 on the superior portion of the imag es. There is likely abnormal twisting of the stomach given the fluid-filled dilated portion below the diaphragm. UTERUS/ADNEXA: Uterus surgically absent or markedly atrophic. Scattered bilateral pelvic phleboliths are seen. LYMPH NODES: No greater than 1cm abdominal or pelvic lymph nodes are appreciated. OSSEOUS STRUCTURES: Underlying levoconvex scoliosis. Osseous structures are demineralized. Moderate t o severe disc space narrowing with vacuum disc phenomenon at L5-S1 level. Multilevel spurring in the thoracolumbar spine. Moderate disc space narrowing and spurring left L4-L5 levels OTHER: Small fat-containing umbilical hernia. Below this there is a larger [place] ventral wall her corby containing fat along with tiny mesenteric vessels and nondilated small bowel loop just left of mi dline IMPRESSION: Large hiatal hernia with fluid dilated stomach above and below diaphragm. There is abnorm al twisting as the gastroduodenal junction is above the diaphragm and the transition point as there i s no dilatation of duodenal sweep and distal bowel loops. This is likely being compressed by the brooke iated dilated fluid-filled stomach at level of diaphragmatic hiatus. Surgical consultation is advised .
[2022-05-06] MEDS ORDERED: HYDROmorphone 0.5 MG/0.5 ML SYRINGE IVP STA (10:43)
[2022-05-06] MEDS ORDERED: HYDROmorphone 1 MG/ML 1 ML SYRINGE IVP PRN (11:07)
[2022-05-06] MEDS ORDERED: NALOXONE 0.4 MG/ML 1 ML VIAL IV PRN (11:07)
[2022-05-06] MEDS ORDERED: METOCLOPRAMIDE 5 MG/ML 2 ML VIAL IVP PRN (11:09)
[2022-05-06] MEDS: SODIUM CHLORIDE 0.9% 1,000 ML IV SCH ×2 (11:24→23:28)
[2022-05-06] MEDS ORDERED: ENALAPRILAT 1.25 MG/ML 1 ML VIAL IVP PRN (11:55)
--- NOTE | 2022-05-06 12:10 | P.CONS ---
History of Present Illness - Reason for Consult Consult date: 05/06/22 - History of Present Illness HISTORY OF PRESENT ILLNESS This is an 82-year-old female patient with past medical history of hypertension, hyperlipidemia, varicose veins. Patient complains of nausea and vomiting and some discomfort in the epigastric area. Onset of symptoms was yesterday. Symptoms worsened last evening when she tried to call for dinner. She denies having any fever or chills, no diarrhea. No chest pain and no shortness of breath at rest. Patient came into the [facility] emergency center for evaluation. Patient was afebrile, heart rate 99, blood pressure 184/104, pulse ox 90% on room air. WBC 11.9, hemoglobin 15, platelet count 186. Lites normal. BUN 21 creatinine 0.83. Blood sugar 204. Patient does not have history of diabetes. Calcium 9.1. Total bilirubin 0.7, AST 27, ALT 15, alkaline phosphatase 78. Troponin 0.0-3. ProBNP 702. Albumin 4.2. Lipase 49. Urinalysis clear with 1+ protein, 1+ ketones negative nitrate, negative leukoesterase. Coronavirus PCR not detected. Echocardiogram from 01/2021 revealed EF greater than 55%, mild aortic valve sclerosis, mild mitral regurgitation, mild tricuspid regurgitation. Chest x-ray reveals CHF exacerbation, cardiomegaly with bilateral mild interstitial edema. Previous chest x-ray from 01/2021 revealed large intrathoracic hiatal hernia. CAT scan of the abdomen and pelvis with contrast revealed large hiatal hernia with fluid dilated stomach above and below diaphragm. There is abnormal twi sting as the gastroduodenal junction is above the diaphragm and the transition point there is no dilatation of the duodenal sweep and distal bowel loops. This is likely being compressed by the herniated dilated fluid filled stomach at level of the diaphragmatic hiatus. Surgical consultation is advised. Patient is seen today in the emergency center, she is waiting for surgical evaluation, she is scheduled for surgical intervention today. We will add in a cardiology consult for clearance and EKG ordered REVIEW OF SYSTEMS Constitutional: No fever, no chills, no night sweats. No weight change. No weakness, fatigue or lethargy. No daytime sleepiness. EENT: No headache. No blurred vision or double vision, no loss of vision. No loss of Hearing, no ringing in the ears, no dizziness. No nasal drainage or congestion. No epistaxis. No sore throat. Lungs: No shortness of breath, cough, no sputum production. No wheezing. Cardiovascular: No chest pain, no lower extremity edema. No palpitations. No paroxysmal nocturnal dyspnea. No orthopnea. No lightheadedness or dizziness. No syncopal episodes. Abdominal: Reports abdominal discomfort at the epigastric area. Reports nausea, reports vomiting. No diarrhea. No constipation. No bloody or tarry stools.. No loss of appetite. Genitourinary: No dysuria, increased frequency, urgency. No urinary retention. Musculoskeletal: No myalgias. No muscle weakness, no gait dysfunction, no frequent falls. No back pain. No neck pain. Integumentary: No wounds, no lesions. No rash or pruritus. No unusual brui sing. No change in hair or nails. Neurologic: No aphasia. No facial droop. No change in mentation. No head injury. No headache. No paralysis. No paresthesia. Psychiatric: No depression. No anxiety. No mood swings. Endocrine: No abnormal blood sugars. No weight change. No excessive sweating or thirst. No cold intolerance. 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 No alcohol use, marijuana one he use, illicit drug use. FAMILY HISTORY Father at age 45 from diverticulitis and peritonitis. Mother at age 81 from Parkinson's and heart failure. Patient has 2 brothers and one has coronary artery disease and the other with COPD. Patient has one sister and she is alive with history of Parkinson's. Patient has 4 sons with no major medical problems. PHYSICAL EXAMINATION Gen: This is an 82-year-old female. Patient is resting on the edge of the ER stretcher and appears to be uncomfortable. HEENT: Head is atraumatic, normocephalic. Pupils equal, round. Sclerae is anicteric. NECK: Supple. No JVD. No lymphadenopathy. No thyromegaly. LUNGS: Clear to auscultation. No wheezes or rhonchi. No intercostal retractions. HEART: First heart sound is depressed second heart sound is normal. There is a 2/6 systolic ejection murmur at the left sternal border. No S3, S4. ABDOMEN: Soft. Bowel sounds are present. No masses. Very minimal abdominal tenderness at the epigastric region. EXTREMITIES: No pedal edema. No calf tenderness. Dorsalis pedis +2 bilaterally. Dark blue ecchymosis to the right foot. NEUROLOGICAL: Patient is awake, alert and oriented x3. Cranial nerves 2 through 12 are grossly intact. ASSESSMENT AND PLAN 1. Abdominal pain secondary to paraesophageal hernia and gastric volvulus. Patient is been ordered for NG tube which is to be placed. Patient is on IV fluids at 0.9 normal saline at 75 mL per hour, patient made nothing by mouth, awaiting surgical intervention, cardiology consult requested for surgical cl earance. EKG obtained, sinus rhythm with no acute ST changes. 2. Hypertensive emergency. Vasotec 1.25 mild grams IV push every 6 hours as needed ordered, patient will be resumed on losartan 50 mg twice daily once cleared for oral intake. 3. Mild leukocytosis secondary to gastric volvulus. 4. Hyperglycemia without history of diabetes. Recheck CMP tomorrow. 5. Hyperlipidemia. Continue low-cholesterol diet, exercise and weight loss. 6. Varicose veins of the bilateral lower extremities, stable. JERICHO hose. 7. Spondylosis of the lumbar sacral spine, stable. 8. Gastroesophageal reflux disease and hiatal hernia. Protonix 40 mg IVP daily. 9. DVT prophylaxis. Heparin subcu will be started following surgery. DISCHARGE PLAN Home. Impression and plan of care have been directed as dictated by the signing physician. Parul Roberts nurse practitioner acting as scribe for signing physician. Past Medical History Past Medical History: Eye Disorder, Hypertension, Osteoarthritis (OA) Additional Past Medical History / Comment(s): corneal problems-seeing specialist, curvature of spine,back pain History of Any Multi-Drug Resistant Organisms: None Reported Past Surgical History: Adenoidectomy, Cholecystectomy, Hernia Repair, Joint Replacement, Tonsillectomy Additional Past Surgical History / Comment(s): both knees replaced, cataract surg., eye surg. for strabismus Past Anesthesia/Blood Transfusion Reactions: Previous Problems w/ Anesthesia Additional Past Anesthesia/Blood Transfusion Reaction / Comm: slow to wake up Past Psychological History: No Psychological Hx Reported Past Alcohol Use History: Occasional Additional Past Alcohol Use History / Comment(s): quit smoking >50 yrs. ago, smoked 4-5 yrs. Past Drug Use History: None Reported - Past Family History Mother Family Medical History: Cancer Medications and Allergies Home Medications Medication Instructions Recorded Confirmed Type Losartan [Cozaar] 50 mg PO BID 04/04/17 05/06/22 History Furosemide [Lasix] 40 mg PO DAILY 01/22/21 05/06/22 History Potassium Chloride [Klor-Con 20] 20 meq PO DAILY 01/22/21 05/06/22 History Cetirizine HCl [Zyrtec] 10 mg PO DAILY PRN 05/06/22 05/06/22 History Allergies Allergy/AdvReac Type Severity Reaction Status Date / Time No Known Allergies Allergy Verified 05/06/22 10:54 Physical Exam Vitals: Vital Signs Temp Pulse Resp BP Pulse Ox 05/06/22 07:52 97 05/06/22 07:36 98.5 F 99 18 184/104 90 L Intake and Output 05/05/22 05/06/22 05/06/22 22:59 06:59 14:59 Other: Weight 68.946 kg Results CBC & Chem 7: 05/07/22 06:07 05/07/22 06:07 Labs: Abnormal Lab Results - Last 24 Hours (Table) 05/06/22 05/06/22 05/06/22 Range/Units 07:47 07:47 07:47 WBC 11.9 H (3.8-10.6) k/uL Hct 47.2 H (34.0-46.0) % Neutrophils # 10.7 H (1.3-7.7) k/uL Lymphocytes # 0.7 L (1.0-4.8) k/uL BUN 21 H (7-17) mg/dL Glucose 204 H (74-99) mg/dL Urine Protein 1+ H (Negative) Urine Ketones 1+ H (Negative) Urine Mucus Rare H (None) /hpf
[2022-05-06] MEDS ORDERED: METOPROLOL TARTRATE 5 MG/5 ML VIAL IVP ONE (12:26)
--- NOTE | 2022-05-06 12:33 | P.CRDCN ---
History of Present Illness History of present illness: HISTORY OF PRESENT ILLNESS: This is a 82-year-old female with a past medical history significant for hypertension and hyperlipidemia. Patient follows in the office with Dr. Bui. We have been asked to see the patient in consultation for cardiac clearance. Patient examined at the bedside. Patient is scheduled for laparoscopic repair of paraesophageal hernia/gastric volvulus. Patient currently reports abdominal pain. She denies any chest pain or pressure. She denies any shortness of breath. She does report some intermittent chest pain and shortness of breath with exertion which has been chronic for her over the past year. Patient states Dr. Dahl and Dr. Bui are both aware of this. Patient is tachycardic and hypertensive at the time of examination. Patient has a large bruise on her right foot with some mild swelling. Patient states she dropped her cell phone on her foot. * EKG: Not available at the time of this dictation * Chest xray findings consistent with CHF exacerbation as there is cardiomegaly with bilateral mild interstitial edema. * CT abdomen and pelvis: Large hiatal hernia with fluid dilated stomach above and below diaphragm. There is abnormal twisting as the gastrojejunal junction as above the diaphragm and a transition point as there is no dilatation of duodenal sweep and distal bowel loops. This is likely being compressed by the herniated dilated fluid filled stomach at level of diaphragmatic hiatus. * Laboratory data: W BC 11.9. Hemoglobin 15.0. Platelet count 186. Sodium 142. Potassium 3.9. BUN 21. Creatinine 0.83. Troponin negative 1. ProBNP 702. * Current home cardiac medications include losartan 50 mg twice a day and Lasix 40 mg daily * Most recent echocardiogram obtained in January 2021 revealed ejection fraction 55%, mild MR, mild TR * Dobutamine stress test performed in January 2021 was negative for ischemia. REVIEW OF SYSTEMS: At the time of my exam: CONSTITUTIONAL: Denies fever or chills. HEENT: Denies blurred vision, vision changes, or eye pain. Denies hemoptysis CARDIOVASCULAR: Denies chest pain. Denies orthopnea. Denies PND. Denies palpitations RESPIRATORY: Denies shortness of breath. GASTROINTESTINAL: Reports abdominal pain. Denies nausea or vomiting. HEMATOLOGIC: Denies bleeding disorders. GENITOURINARY: Denies any blood in urine. SKIN: Denies pruitis. Denies rash. PHYSICAL EXAM: VITAL SIGNS: Reviewed. GENERAL: Well-developed in no acute distress. HEENT: Head is normocephalic. Pupils are equal, round. Sclerae anicteric. Mucous membranes of the mouth are moist. Neck supple. No JVD or thyromegaly LUNGS: Respirations even and unlabored. Lungs diminished to auscultation bilaterally. HEART: Regular rate and rhythm. S1 and S2 heard. ABDOMEN: Soft. Nondistended. Nontender. EXTREMITIES: Normal range of motion. No clubbing or cyanosis. Peripheral pulses intact. Bruising noted to right foot with mild edema. NEUROLOGIC: Awake and alert. Oriented x 3. ASSESSMENT: Abdominal pain with nausea and vomiting Paraesophageal hernia/gastric volvulus Hypertension, uncontrolled Hyperlipidemia PLAN: Obtain 2D echo to assess cardiac structure and function Obtain EKG Patient currently NPO and unable to take home meds. Give 5mg lopressor IVP x 1 dose. Await further evaluation by Dr. Montes Further recommendations pending patient course Nurse practitioner note has been reviewed by physician. Signing provider agrees with the documented findings, assessment, and plan of care. Past Medical History Past Medical History: Eye Disorder, Hypertension, Osteoarthritis (OA) Additional Past Medical History / Comment(s): corneal problems-seeing specialist, curvature of spine,back pain History of Any Multi-Drug Resistant Organisms: None Reported Past Surgical History: Adenoidectomy, Cholecystectomy, Hernia Repair, Joint Replacement, Tonsillectomy Additional Past Surgical History / Comment(s): both knees replaced, cataract surg., eye surg. for strabismus Past Anesthesia/Blood Transfusion Reactions: Previous Problems w/ Anesthesia Additional Past Anesthesia/Blood Transfusion Reaction / Comment(s): slow to wake up Past Psychological History: No Psychological Hx Reported Past Alcohol Use History: Occasional Additional Past Alcohol Use History / Comment(s): quit smoking >50 yrs. ago, smoked 4-5 yrs. Past Drug Use History: None Reported - Past Family History Mother Family Medical History: Cancer Medications and Allergies Home Medications Medication Instructions Recorded Confirmed Type Losartan [Cozaar] 50 mg PO BID 04/04/17 05/06/22 History Furosemide [Lasix] 40 mg PO DAILY 01/22/21 05/06/22 History Potassium Chloride [Klor-Con 20] 20 meq PO DAILY 01/22/21 05/06/22 History Cetirizine HCl [Zyrtec] 10 mg PO DAILY PRN 05/06/22 05/06/22 History Allergies Allergy/AdvReac Type Severity Reaction Status Date / Time No Known Allergies Allergy Verified 05/06/22 10:54 Physical Exam Vitals: Vital Signs Temp Pulse Resp BP Pulse Ox 05/06/22 07:52 97 05/06/22 07:36 98.5 F 99 18 184/104 90 L Intake and Output 05/05/22 05/06/22 05/06/22 22:59 06:59 14:59 Other: Weight 68.946 kg Results 05/06/22 07:47 05/06/22 07:47 Cardiac Enzymes 05/06/22 05/06/22 Range/Units 07:47 07:47 AST 27 (14-36) U/L Troponin I 0.023 (0.000-0.034) ng/mL CBC 05/06/22 Range/Units 07:47 WBC 11.9 H (3.8-10.6) k/uL RBC 4.89 (3.80-5.40) m/uL Hgb 15.0 (11.4-16.0) gm/dL Hct 47.2 H (34.0-46.0) % Plt Count 186 (150-450) k/uL Comprehensive Metabolic Panel 05/06/22 Range/Units 07:47 Sodium 142 (137-145) mmol/L Potassium 3.9 (3.5-5.1) mmol/L Chloride 103 (98-107) mmol/L Carbon Dioxide 26 (22-30) mmol/L BUN 21 H (7-17) mg/dL Creatinine 0.83 (0.52-1.04) mg/dL Glucose 204 H (74-99) mg/dL Calcium 9.1 (8.4-10.2) mg/dL AST 27 (14-36) U/L ALT 15 (4-34) U/L Alkaline Phosphatase 78 (38-126) U/L Total Protein 6.5 (6.3-8.2) g/dL Albumin 4.2 (3.5-5.0) g/dL Current Medications Generic Name Dose Route Start Last Admin Trade Name Freq PRN Reason Stop Dose Admin Enalaprilat 1.25 mg 05/06/22 11:55 Enalaprilat 1.25 Mg/Ml 1 Ml Vial IVP Q6HR PRN SBP >160 Hydromorphone HCl 0.5 mg 05/06/22 11:07 Hydromorphone 0.5 Mg/0.5 Ml Syringe IVP Q3HR PRN Moderate Pain (Scale 4 to 6) Hydromorphone HCl 1 mg 05/06/22 11:07 Hydromorphone 1 Mg/Ml 1 Ml Syringe IVP Q3HR PRN Severe Pain (Scale 7 to 10) Sodium Chloride 1,000 mls @ 75 mls/hr 05/06/22 11:15 05/06/22 11:24 Saline 0.9% IV 75 mls/hr .[id number] NAGA Administration Losartan Potassium 50 mg 05/06/22 21:00 Losartan 50 Mg Tab PO BID NAGA Metoclopramide HCl 10 mg 05/06/22 11:09 Metoclopramide 5 Mg/Ml 2 Ml Vial IVP Q6H PRN Nausea And Vomiting Naloxone HCl 0.2 mg 05/06/22 11:07 Naloxone 0.4 Mg/Ml 1 Ml Vial IV Q2M PRN Opioid Reversal Ondansetron HCl 4 mg 05/06/22 11:07 Ondansetron 4 Mg/2 Ml Vial IVP Q8HR PRN Nausea And Vomiting Pantoprazole Sodium 40 mg 05/07/22 09:00 Pantoprazole 40 Mg/10 Ml Vial IVP DAILY NAGA Intake and Output 05/05/22 05/06/22 05/06/22 22:59 06:59 14:59 Other: Weight 68.946 kg Patient Weight 05/07/22 06:59 Weight 68.946 kg 05/06/22 07:47 05/06/22 07:47
--- NOTE | 2022-05-06 13:17 | XR ---
EXAMINATION TYPE: XR chest 1V confirm line [facility] DATE OF EXAM: 05/06/2022 COMPARISON: 05/06/2022 HISTORY: 82-year-old female NG tube placement TECHNIQUE: Single frontal view of the chest is obtained. FINDINGS: Heart mildly enlarged. Hyperinflation. Interstitial densities are present throughout, similar to the exam from today. The NG tube is looped once within a large distended hiatal hernia. No pleural effusi on. IMPRESSION: 1. NG tube looped once within a large, distended hiatal hernia. Suspect high-grade gastric outlet obs truction as a complication of the hiatal hernia. Surgical consultation recommended. 2. COPD, mild cardiomegaly, and similar interstitial changes.
--- NOTE | 2022-05-06 13:18 | P.GSHP ---
History of Present Illness H&P Date: 05/06/22 CHIEF COMPLAINT: Abdominal pain HISTORY OF PRESENT ILLNESS: This is a 82-year-old female who presented with nausea vomiting and epigastric abdominal pain that started last night. She has a known hiatal hernia in which she is dealing with epigastric discomfort in pain for about 2 years. She reports having episodes of heartburn and indigestion. She states yesterday after eating food at a restaurant she started having nausea and vomiting and could not keep anything down. Symptoms continued to worsen throughout the day. And she decided to proceed to the hospital for further evaluation and treatment. Computed tomography scan abdomen and pelvis has shown a large hiatal hernia with fluid dilated stomach above and below diaphragm. There is abnormal twisting at the gastroduodenal junction above the diaphragm and the transition point there is is no dilatation of the duodenal sweep and distal bowel loops. This is likely being compressed by the herniated dilated fluid filled stomach at the level of the diaphragmatic hiatus. Patient has been admitted to surgical service. Patient was hypertensive on admission. Apparently did have some tachycardia. Cardiology did give a dose of IV metoprolol. She denies any fever chills or sweats. She does report a cough. She did report some chest discomfort with ambulating. That has now resolved. She being evaluated by cardiology. PAST MEDICAL HISTORY: Hypertension osteoarthritis PAST SURGICAL HISTORY: Cholecystectomy, hernia repair MEDICATIONS: See list. ALLERGIES: See list. SOCIAL HISTORY: No illicit drug use. REVIEW OF SYSTEMS: CONSTITUTIONAL: Denies fever or chills. HEENT: Denies blurred vision, vision changes, or eye pain. Denies hemoptysis CARDIOVASCULAR: Denies chest pain or pressure. RESPIRATORY: No shortness of breath. GASTROINTESTINAL: See HPI for pertinent findings HEMATOLOGIC: Denies bleeding disorders. GENITOURINARY: Denies any blood in urine or increased urinary frequency. SKIN: Denies pruitis. Denies rash. PHYSICAL EXAM: VITAL SIGNS: Reviewed GENERAL: Well-developed in no acute distress. HEENT: No sclera icterus. Extraocular movements grossly intact. Moist buccal mucosa. Head is atraumatic, normocephalic. No nasal drainage. ABDOMEN: Soft. Nondistended. Epigastric tenderness. Patient has NG tube in place NEUROLOGIC: Alert and oriented. Cranial nerves II through XII grossly intact. LABORATORY DATA: WBC is 11.9 Hgb 15 platelets 186 Sodium 142 potassium 3.9 creatinine 0.83 Total bilirubin 0.7 AST 27 ALT 15 alk phos 78 Troponin less than 0.012 BNP 702 Lipase 49 Covid not detected IMAGING: Computed tomography scan abdomen and pelvis has shown a large hiatal hernia with fluid dilated stomach above and below diaphragm. There is abnormal twisting at the gastroduodenal junction above the diaphragm and the transition point there is is no dilatation of the duodenal sweep and distal bowel loops. This is likely being compressed by the herniated dilated fluid filled stomach at the level of the diaphragmatic hiatus. Chest x-ray findings consistent with CHF exacerbation as there is cardiomegaly with bilateral mild interstitial edema noted. Repeat chest x-ray pending ASSESSMENT: 1. Large hiatal hernia 2. Gastric volvulus PLAN: -Patient scheduled for laparoscopic repair of paraesophageal hernia and gastric volvulus today with Dr. Cotton -Keep patient nothing by mouth -Continue NG tube for decompression -Cardiology consulted for cardiac clearance -Medical service consulted for medical management -Continue IV fluids -Continue supportive care Physician Shovel Log Loader Operator note has been reviewed by physician. Signing provider agrees with the documented findings, assessment, and plan of care. Past Medical History Past Medical History: Eye Disorder, Hypertension, Osteoarthritis (OA) Additional Past Medical History / Comment(s): corneal problems-seeing specialist, curvature of spine,back pain History of Any Multi-Drug Resistant Organisms: None Reported Past Surgical History: Adenoidectomy, Cholecystectomy, Hernia Repair, Joint Replacement, Tonsillectomy Additional Past Surgical History / Comment(s): both knees replaced, cataract surg., eye surg. for strabismus Past Anesthesia/Blood Transfusion Reactions: Previous Problems w/ Anesthesia Additional Past Anesthesia/Blood Transfusion Reaction / Comment(s): slow to wake up Past Psychological History: No Psychological Hx Reported Past Alcohol Use History: Occasional Additional Past Alcohol Use History / Comment(s): quit smoking >50 yrs. ago, smoked 4-5 yrs. Past Drug Use History: None Reported - Past Family History Mother Family Medical History: Cancer Medications and Allergies Home Medications Medication Instructions Recorded Confirmed Type Losartan [Cozaar] 50 mg PO BID 04/04/17 05/06/22 History Furosemide [Lasix] 40 mg PO DAILY 01/22/21 05/06/22 History Potassium Chloride [Klor-Con 20] 20 meq PO DAILY 01/22/21 05/06/22 History Cetirizine HCl [Zyrtec] 10 mg PO DAILY PRN 05/06/22 05/06/22 History Allergies Allergy/AdvReac Type Severity Reaction Status Date / Time No Known Allergies Allergy Verified 05/06/22 10:54 Surgical - Exam Vital Signs Temp Pulse Resp BP Pulse Ox 98.5 F 99 18 184/104 90 L 05/06/22 07:36 05/06/22 07:36 05/06/22 07:36 05/06/22 07:36 05/06/22 07:36 Results - Labs 05/06/22 07:47 05/06/22 07:47 Abnormal Lab Results - Last 24 Hours (Table) 05/06/22 05/06/22 05/06/22 Range/Units 07:47 07:47 07:47 WBC 11.9 H (3.8-10.6) k/uL Hct 47.2 H (34.0-46.0) % Neutrophils # 10.7 H (1.3-7.7) k/uL Lymphocytes # 0.7 L (1.0-4.8) k/uL BUN 21 H (7-17) mg/dL Glucose 204 H (74-99) mg/dL Urine Protein 1+ H (Negative) Urine Ketones 1+ H (Negative) Urine Mucus Rare H (None) /hpf Diabetes panel 05/06/22 Range/Units 07:47 Sodium 142 (137-145) mmol/L Potassium 3.9 (3.5-5.1) mmol/L Chloride 103 (98-107) mmol/L Carbon Dioxide 26 (22-30) mmol/L BUN 21 H (7-17) mg/dL Creatinine 0.83 (0.52-1.04) mg/dL Glucose 204 H (74-99) mg/dL Calcium 9.1 (8.4-10.2) mg/dL AST 27 (14-36) U/L ALT 15 (4-34) U/L Alkaline Phosphatase 78 (38-126) U/L Total Protein 6.5 (6.3-8.2) g/dL Albumin 4.2 (3.5-5.0) g/dL Calcium panel 05/06/22 Range/Units 07:47 Calcium 9.1 (8.4-10.2) mg/dL Albumin 4.2 (3.5-5.0) g/dL Pituitary panel 05/06/22 Range/Units 07:47 Sodium 142 (137-145) mmol/L Potassium 3.9 (3.5-5.1) mmol/L Chloride 103 (98-107) mmol/L Carbon Dioxide 26 (22-30) mmol/L BUN 21 H (7-17) mg/dL Creatinine 0.83 (0.52-1.04) mg/dL Glucose 204 H (74-99) mg/dL Calcium 9.1 (8.4-10.2) mg/dL Adrenal panel 05/06/22 Range/Units 07:47 Sodium 142 (137-145) mmol/L Potassium 3.9 (3.5-5.1) mmol/L Chloride 103 (98-107) mmol/L Carbon Dioxide 26 (22-30) mmol/L BUN 21 H (7-17) mg/dL Creatinine 0.83 (0.52-1.04) mg/dL Glucose 204 H (74-99) mg/dL Calcium 9.1 (8.4-10.2) mg/dL Total Bilirubin 0.7 (0.2-1.3) mg/dL AST 27 (14-36) U/L ALT 15 (4-34) U/L Alkaline Phosphatase 78 (38-126) U/L Total Protein 6.5 (6.3-8.2) g/dL Albumin 4.2 (3.5-5.0) g/dL
--- NOTE | 2022-05-06 17:44 | CA ---
Transthoracic Echo Report Name: Anahi Naranjo Age: 82 Gender: F : 1940 Exam Date: 05/06/2022 13:45 Exam Location: [facility] Ht (in): 49 Wt (lb): 152 Ordering Physician: Diana Gayle Attending/Referring Phys: [id number], Irwin Starch And Prosize Mixer Claire Castrejon, VANESSA Procedure CPT: Indications: LV function Cardiac Hx: Technical Quality: Fair Contrast 1: Total Dose (mL): Contrast 2: Total Dose (mL): MEASUREMENTS (Male / Female) Normal Values 2D ECHO LV Diastolic Diameter PLAX 3.5 cm 4.2 - 5.9 / 3.9 - 5.3 cm LV Systolic Diameter PLAX 1.7 cm IVS Diastolic Thickness 1.2 cm 0.6 - 1.0 / 0.6 - 0.9 cm LVPW Diastolic Thickness 1.1 cm 0.6 - 1.0 / 0.6 - 0.9 cm LV Relative Wall Thickness 0.7 M-MODE Aortic Root Diameter MM 3.2 cm LA Systolic Diameter MM 2.4 cm LA Ao Ratio MM 0.8 AV Cusp Separation MM 1.7 cm DOPPLER MV Area PHT 2.6 cm??? Mitral E Point Velocity 47.0 cm/s Mitral A Point Velocity 86.9 cm/s Mitral E to A Ratio 0.5 MV Deceleration Time 293.8 ms MV E' Velocity 3.6 cm/s Mitral E to MV E' Ratio 13.1 TR Peak Velocity 219.2 cm/s TR Peak Gradient 19.2 mmHg Right Ventricular Systolic Press 24.2 mmHg FINDINGS Left Ventricle Left ventricular ejection fraction is estimated at 50-55%. Moderately increased left ventricular wall thickness. Anterior Septal hypokinesis Right Ventricle Normal right ventricular size and function. Right Atrium Normal right atrial size. Left Atrium Normal left atrial size. Mitral Valve Structurally normal mitral valve. Mild mitral regurgitation. Aortic Valve Trileaflet aortic valve. Tricuspid Valve Structurally normal tricuspid valve. Mild tricuspid regurgitation. Pulmonic Valve Pulmonic valve not well visualized. Pericardium Normal pericardium. Aorta Normal size aortic root and proximal ascending aorta. CONCLUSIONS Preserved LV systolic function with anteroseptal and apical hypokinesis Previewed by: Dr. Garrick Montes MD (Electronically Signed) Final Date: 06 May 2022 17:43
[2022-05-06] MEDS: ACETAMINOPHEN IV (For NPO) 1,000 MG in EMPTY BAG 1 BAG IVPB PRN (19:13)
[2022-05-06] MEDS: LOSARTAN 50 MG TAB PO SCH (21:24)
[2022-05-07] MEDS: ACETAMINOPHEN IV (For NPO) 1,000 MG in EMPTY BAG 1 BAG IVPB PRN (02:20)
[2022-05-07] MEDS ORDERED: IV FLUID CONTINUATION 1,000 ML IV ONE (07:27)
[2022-05-07] MEDS: ONDANSETRON 4 MG/2 ML VIAL IVP PRN ×2 (07:34→21:18)
[2022-05-07] MEDS ORDERED: HEPARIN SODIUM,PORCINE/PF 5,000 UNIT/0.5 ML SYRINGE SQ ONE (07:36)
[2022-05-07] MEDS ORDERED: SUCCINYLCHOLINE CHLORIDE 200 MG/10 ML VIAL IV ONE (07:45)
[2022-05-07] MEDS ORDERED: LABETALOL 5 MG/ML VIAL MDV ONE (07:45)
[2022-05-07] MEDS ORDERED: NEOSTIGMINE 1 MG/ML 10 ML VIAL ONE (07:45)
[2022-05-07] MEDS ORDERED: SODIUM CHLORIDE 0.9% 100 ML BAG ONE (07:45)
[2022-05-07] MEDS ORDERED: ePHEDrine 50 MG/ML 1 ML VIAL ONE (07:45)
[2022-05-07] MEDS ORDERED: ceFAZolin 1,000 MG VIAL ONE (07:45)
[2022-05-07] MEDS ORDERED: PROPOFOL 10 MG/ML 20 ML VIAL IV ONE (07:45)
[2022-05-07] MEDS ORDERED: LIDOCAINE 2% INJ 20 MG/ML (2 ML VIAL) ONE (07:45)
[2022-05-07] MEDS ORDERED: fentaNYL (PF) 50 MCG/ML 2 ML AMP ONE (07:45)
[2022-05-07] MEDS ORDERED: ROCURONIUM 10 MG/ML (5 ML VIAL) IV ONE (07:45)
[2022-05-07] MEDS ORDERED: GLYCOPYRROLATE 0.2 MG/ML 2 ML VIAL ONE (07:45)
[2022-05-07] MEDS ORDERED: BUPIVACAIN-EPI 0.25%-1:200,000 30 ML VIAL SQ ONE ×2 (08:35)
[2022-05-07] MEDS ORDERED: LACTATED RINGERS 1,000 ML IV ONE (08:46)
[2022-05-07 09:06] LABS: HCT 43.7 % (37.2-46.3); MCV 96.9 fL (80.0-97.0); Mean Platelet Volume 12.1 fL (9.5-12.2); NRBC Per 100 WBC 0 /100 WBCS (0.0-0.0); Platelet Count 182 X 10*3/uL (140-440); RBC 4.51 X 10*6/uL (4.10-5.20); RDW 13.6 % (11.5-14.5); WBC 10.26 X 10*3/uL (4.50-10.00)
--- NOTE | 2022-05-07 09:41 | P.OP ---
Date of Procedure: 05/07/22 Preoperative Diagnosis: Large paraesophageal hernia with gastric volvulus Postoperative Diagnosis: Large paraesophageal hernia with gastric volvulus Procedure(s) Performed: Repair of paraesophageal hernia with mesh Anesthesia: ANGELIC Surgeon: Shivam Cotton Estimated Blood Loss (ml): 10 Pathology: none sent Condition: stable Disposition: PACU Description of Procedure: TThe patient was placed on the operating table in the supine position. The patient received general anesthesia. And was placed in dorsal lithotomy position. The patient was prepped and draped in the usual sterile fashion. The skin incision sites were anesthetized with 1% local Xylocaine. The skin was incised in the left periumbilical area and then using a blade less 5 mm trocar under direct visualization panel cavity was entered. After adequate insufflation the laparoscope was then placed into the peritoneal cavity. Next a 5 mm trochars placed in the right epigastric position. Another 5 millimeter trocar the right lateral position. Another 5 millimeter trocar in the left late ral position a 5 mm trocar is placed in the left epigastric position. And then the initial 5 mm trocar was exchanged for a 10 mm trocar. The left lateral lobe liver was retracted. The hernia was seen. Approximately 80% stomach appeared to be in the chest. The stomach was grasped and then reduced. With the stomach reduced out of the chest the hiatal hernia sac was seen. He is a Harmonic scissors the hiatal hernia sac was dissected free of the crura. Once the sac was completely dissected the remaining stomach was reduced into the peritoneal cavity. A good length of esophagus was achie melissa. Next the crural defect was closed with 2-0 Ethibond suture. After the crural defect was closed a piece of [place] [employer] a mesh was placed over top of the repair and secured with the sewright running device running . A 58-[place] bougie dilator is placed across the GE junction. There appeared to be no evidence of any obstruction of the GE junction. The dilator was withdrawn. The abdomen was areas of bleeding seen. The trochars withdrawn. Skin was closed interrupted 3- 0 Monocryl suture. Dermabond dressings was applied. Patient was sent to recovery room in stable condition..
--- NOTE | 2022-05-07 09:52 | P.PN ---
Progress Note - Text Progress Note Date: 05/07/22 Patient currently off the floor for OR at the time of cardiology rounds. Will re-evaluate patient tomorrow.
[2022-05-07] MEDS ORDERED: HYDROmorphone 0.5 MG/0.5 ML SYRINGE IVP ONE ×2 (10:07→10:15)
[2022-05-07 11:52] LABS: African American GFR (CKD) 68.5 (60.0-200.0); Albumin/Globulin Ratio 2.11 (1.60-3.17); Anion Gap 8.7 mmol/L (10.00-18.00); BUN/Creat Ratio 24.78 Ratio (12.00-20.00); Blood Urea Nitrogen 22.3 mg/dL (9.0-27.0); Calcium 9.1 mg/dL (8.7-10.3); Carbon Dioxide 29.3 mmol/L (20.0-27.5); Globulin 1.9 g/dL (1.6-3.3); Non-African American GFR(CKD) 59.1 (60.0-200.0); Potassium 3.9 mmol/L (3.5-5.5); Total Bilirubin 0.7 mg/dL (0.30-1.20); Total Protein 5.9 g/dL (6.2-8.2)
[2022-05-07] MEDS: LOSARTAN 50 MG TAB PO SCH ×2 (12:25→21:47)
[2022-05-07] MEDS: PANTOPRAZOLE 40 MG/10 ML VIAL IVP SCH (12:27)
[2022-05-07] MEDS: SODIUM CHLORIDE 0.9% 1,000 ML IV SCH ×2 (12:29→21:47)
--- NOTE | 2022-05-07 12:36 | P.PN ---
Subjective Progress Note Date: 05/07/22 HISTORY OF PRESENT ILLNESS This is an 82-year-old female patient with past medical history of hypertension, hyperlipidemia, varicose veins. Patient complains of nausea and vomiting and some discomfort in the epigastric area. Onset of symptoms was yesterday. Symptoms worsened last evening when she tried to call for dinner. She denies having any fever or chills, no diarrhea. No chest pain and no shortness of breath at rest. Patient came into the [facility] emergency center for evaluation. Patient was afebrile, heart rate 99, blood pressure 184/104, pulse ox 90% on room air. WBC 11.9, hemoglobin 15, platelet count 186. Lites normal. BUN 21 creatinine 0.83. Blood sugar 204. Patient does not have history of diabetes. Calcium 9.1. Total bilirubin 0.7, AST 27, ALT 15, alkaline phosphatase 78. Troponin 0.0-3. ProBNP 702. Albumin 4.2. Lipase 49. Urinalysis clear with 1+ protein, 1+ ketones negative nitrate, negative leukoesterase. Coronavirus PCR not detected. Echocardiogram from 01/2021 revealed EF greater than 55%, mild aortic valve scler osis, mild mitral regurgitation, mild tricuspid regurgitation. Chest x-ray reveals CHF exacerbation, cardiomegaly with bilateral mild interstitial edema. Previous chest x-ray from 01/2021 revealed large intrathoracic hiatal hernia. CAT scan of the abdomen and pelvis with contrast revealed large hiatal hernia with fluid dilated stomach above and below diaphragm. There is abnormal twisting as the gastroduodenal junction is above the diaphragm and the transition point there is no dilatation of the duodenal sweep and distal bowel loops. This is likely being compressed by the herniated dilated fluid filled stomach at level of the diaphragmatic hiatus. Surgical consultation is advised. Patient is seen today in the emergency center, she is waiting for surgical evaluation, she is scheduled for surgical intervention today. We will add in a cardiology consult for clearance and EKG ordered 05/07: Patient had NG tube placed yesterday while in the emergency center with return of large amount of fluid. This did help her discomfort at the time. She is now seen in the postop [facility]. 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 She denies having any pain at this time. She is quite groggy and tired feeling. She is having pain in the shoulder areas. We will ask general surgery to clarify nothing by mouth/diet status. Heparin added for DVT prophylaxis and patient has Dilaudid available as needed for pain control. Patient is afebrile, heart rate 80, blood pressure 143/78, pulse ox 90-96% on 2 L nasal cannula. Echocardiogram reveals EF of 50-55%, mild mitral regurgitation, mild tricuspid regurgitation. REVIEW OF SYSTEMS Constitutional: No fever, no chills, no night sweats. No weight change. No weakness, fatigue or lethargy. No daytime sleepiness. EENT: No headache. No blurred vision or double vision, no loss of vision. No loss of Hearing, no ringing in the ears, no dizziness. No nasal drainage or congestion. No epistaxis. No sore throat. Lungs: No shortness of breath, cough, no sputum production. No wheezing. Cardiovascular: No chest pain, no lower extremity edema. No palpitations. No paroxysmal nocturnal dyspnea. No orthopnea. No lightheadedness or dizziness. No syncopal episodes. Abdominal: Reports mild abdominal discomfort at the epigastric area. Denies nausea, denies vomiting. No diarrhea. No constipation. No bloody or tarry stools reports loss of appetite. Genitourinary: No dysuria, increased frequency, urgency. No urinary retention. Musculoskeletal: No myalgias. No muscle weakness, no gait dysfunction, no frequent falls. No back pain. No neck pain. Integumentary: No wounds, no lesions. No rash or pruritus. No unusual bruising. No change in hair or nails. Neurologic: No aphasia. No facial droop. No change in mentation. No head injury. No headache. No paralysis. No paresthesia. Psychiatric: No depression. No anxiety. No mood swings. Endocrine: No abnormal blood sugars. No weight change. No excessive sweating or thirst. No cold intolerance. PHYSICAL EXAMINATION Gen: This is an 82-year-old female. Patient is resting in bed and appears to be in no acute distress. HEENT: Head is atraumatic, normocephalic. Pupils equal, round. Sclerae is anicteric. NECK: Supple. No JVD. No lymphadenopathy. No thyromegaly. LUNGS: Clear to auscultation. No wheezes or rhonchi. No intercostal r etractions. HEART: First heart sound is depressed second heart sound is normal. There is a 2/6 systolic ejection murmur at the left sternal border. No S3, S4. ABDOMEN: Soft. No masses. Surgical puncture sites are glued, edges well approximated, no erythema or drainage. EXTREMITIES: No pedal edema. No calf tenderness. Dorsalis pedis +2 bilaterally. Dark blue ecchymosis to the right foot. NEUROLOGICAL: Patient is awake, alert and oriented x3. Cranial nerves 2 through 12 are grossly intact. ASSESSMENT AND PLAN 1. Abdominal pain secondary to paraesophageal hernia and gastric volvulus status post repair with mesh 05/07. Patient is continued on IV fluids at 0.9 n ormal saline at 75 mL per hour, continue nothing by mouth tonight and Craig clear liquid diet ordered for morning, continue patient on Dilaudid as needed for pain. 2. Hypertensive emergency. Vasotec 1.25 mild grams IV push every 6 hours as needed ordered, patient resumed on losartan 50 mg twice daily. 3. Mild leukocytosis secondary to gastric volvulus. 4. Hyperglycemia without history of diabetes. 5. Hyperlipidemia. Continue low-cholesterol diet, exercise and weight loss. 6. Varicose veins of the bilateral lower extremities, stable. JERICHO hose. 7. Spondylosis of the lumbar sacral spine, stable. 8. Gastroesophageal reflux disease and hiatal hernia. Protonix 40 mg IVP daily. 9. DVT prophylaxis. Heparin subcu. DISCHARGE PLAN Home. Impression and plan of care have been directed as dictated by the signing physician. Parul Roberts nurse practitioner acting as scribe for signing physician. Objective - Vital Signs Vital signs: Vital Signs Temp 97.3 F L 05/07/22 07:26 Pulse 80 05/07/22 07:26 Resp 16 05/07/22 07:28 BP 143/78 05/07/22 07:26 Pulse Ox 96 05/07/22 07:28 FiO2 Intake & Output 05/06/22 05/07/22 05/07/22 18:59 06:59 18:59 Output Total 200 Balance -200 Weight 68.946 kg 68.946 kg Output: Gastric Drainage 200 Other: Voiding Method Toilet # Voids 3 - Labs CBC & Chem 7: 05/07/22 06:07 05/07/22 06:07 Labs: Abnormal Lab Results - Last 24 Hours (Table) 05/06/22 05/06/22 05/06/22 Range/Units 07:47 07:47 07:47 WBC 11.9 H (3.8-10.6) k/uL Hct 47.2 H (34.0-46.0) % Neutrophils # 10.7 H (1.3-7.7) k/uL Lymphocytes # 0.7 L (1.0-4.8) k/uL BUN 21 H (7-17) mg/dL Glucose 204 H (74-99) mg/dL Urine Protein 1+ H (Negative) Urine Ketones 1+ H (Negative) Urine Mucus Rare H (None) /hpf
[2022-05-07] MEDS: HYDROmorphone 0.5 MG/0.5 ML SYRINGE IVP PRN (21:12)
[2022-05-07] MEDS: HEPARIN SODIUM,PORCINE/PF 5,000 UNIT/0.5 ML SYRINGE SQ SCH (21:47)
[2022-05-08] MEDS: HYDROmorphone 0.5 MG/0.5 ML SYRINGE IVP PRN (00:45)
[2022-05-08] MEDS: ACETAMINOPHEN TAB 325 MG TAB PO PRN ×3 (08:07→20:32)
[2022-05-08] MEDS: SODIUM CHLORIDE 0.9% 1,000 ML IV SCH ×2 (08:08→15:03)
[2022-05-08] MEDS: HEPARIN SODIUM,PORCINE/PF 5,000 UNIT/0.5 ML SYRINGE SQ SCH ×2 (08:08→20:32)
[2022-05-08] MEDS: PANTOPRAZOLE 40 MG/10 ML VIAL IVP SCH (08:08)
[2022-05-08] MEDS: LOSARTAN 50 MG TAB PO SCH ×2 (08:08→20:32)
--- NOTE | 2022-05-08 09:12 | P.PN ---
Subjective Progress Note Date: 05/08/22 Principal diagnosis: Preoperative cardiac assessment The patient is a pleasant 82-year-old female patient was hypertension and dyslipidemia who was admitted to the hospital with abdominal discomfort and nausea and vomiting and she was diagnosed with hiatal hernia beach she underwent surgery yesterday. She was seen this morning. She is over asymptomatic from the cardiovascular standpoint of view and she remains hemodynamically stable. The pressure is slightly on the upper limits of normal. From a cardiac standpoint of view, I would continue the current medical regimen. We will adjust the blood pressure medication if the pressure continues to be elevated. Objective - Vital Signs Vital signs: Vital Signs Temp 98.5 F 05/08/22 08:00 Pulse 85 05/08/22 08:00 Resp 17 05/08/22 02:02 BP 155/76 05/08/22 08:00 Pulse Ox 86 L 05/08/22 08:00 FiO2 Intake & Output 05/07/22 05/08/22 05/08/22 18:59 06:59 18:59 Intake Total 950 Output Total 50 Balance 900 Intake: IV 950 Output: Estimated Blood Loss 50 Other: Voiding Method Toilet # Voids 2 1 - Constitutional General appearance: Present: no acute distress - Respiratory Respiratory: bilateral: CTA - Cardiovascular Rhythm: regular - Labs CBC & Chem 7: 05/07/22 06:07 05/07/22 06:07 Labs: Abnormal Lab Results - Last 24 Hours (Table) 05/07/22 Range/Units 06:07 Carbon Dioxide 29.3 H (20.0-27.5) mmol/L Anion Gap 8.70 L (10.00-18.00) mmol/L Est GFR (CKD-EPI)NonAf 59.1 L (60.0-200.0) BUN/Creatinine Ratio 24.78 H (12.00-20.00) Ratio Total Protein 5.9 L (6.2-8.2) g/dL Assessment and Plan Assessment: Assessment Status post hiatal hernia surgery Hypertension Dyslipidemia Plan The patient is asymptomatic She is clinically stable Monitor the blood pressure and adjust her medications if the BP continue to be elevated
--- NOTE | 2022-05-08 14:30 | P.PN ---
Subjective Progress Note Date: 05/08/22 HISTORY OF PRESENT ILLNESS This is an 82-year-old female patient with past medical history of hypertension, hyperlipidemia, varicose veins. Patient complains of nausea and vomiting and some discomfort in the epigastric area. Onset of symptoms was yesterday. Symptoms worsened last evening when she tried to call for dinner. She denies having any fever or chills, no diarrhea. No chest pain and no shortness of breath at rest. Patient came into the [facility] emergency center for evaluation. Patient was afebrile, heart rate 99, blood pressure 184/104, pulse ox 90% on room air. WBC 11.9, hemoglobin 15, platelet count 186. Lites normal. BUN 21 creatinine 0.83. Blood sugar 204. Patient does not have history of diabetes. Calcium 9.1. Total bilirubin 0.7, AST 27, ALT 15, alkaline phosphatase 78. Troponin 0.0-3. ProBNP 702. Albumin 4.2. Lipase 49. Urinalysis clear with 1+ protein, 1+ ketones negative nitrate, negative leukoesterase. Coronavirus PCR not detected. Echocardiogram from 01/2021 revealed EF greater than 55%, mild aortic valve scler osis, mild mitral regurgitation, mild tricuspid regurgitation. Chest x-ray reveals CHF exacerbation, cardiomegaly with bilateral mild interstitial edema. Previous chest x-ray from 01/2021 revealed large intrathoracic hiatal hernia. CAT scan of the abdomen and pelvis with contrast revealed large hiatal hernia with fluid dilated stomach above and below diaphragm. There is abnormal twisting as the gastroduodenal junction is above the diaphragm and the transition point there is no dilatation of the duodenal sweep and distal bowel loops. This is likely being compressed by the herniated dilated fluid filled stomach at level of the diaphragmatic hiatus. Surgical consultation is advised. Patient is seen today in the emergency center, she is waiting for surgical evaluation, she is scheduled for surgical intervention today. We will add in a cardiology consult for clearance and EKG ordered 05/07: Patient had NG tube placed yesterday while in the emergency center with return of large amount of fluid. This did help her discomfort at the time. She is now seen in the postop period on the [facility] floor. 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 She denies having any pain at this time. She is quite groggy and tired feeling. She is having pain in the shoulder areas. We will ask general surgery to clarify nothing by mouth/diet status. Heparin added for DVT prophylaxis and patient has Dilaudid available as needed for pain control. Patient is afebrile, heart rate 80, blood pressure 143/78, pulse ox 90-96% on 2 L nasal cannula. Echocardiogram reveals EF of 50-55%, mild mitral regurgitation, mild tricuspid regurgitation. 05/08: Patient is laying down in bed in no apparent distress, she is feeling a bit weaker today, has no great appetite, she continues to be a clear fluid diet, she is passing gas, she is urinating well, she has no abdominal pain at this time she is not nauseated, she seems to be walking around using a walker hopefully will be a particular out of the hospital in the next 24-48 hours. REVIEW OF SYSTEMS Constitutional: No fever, no chills, no night sweats. No weight change. No weakness, fatigue or lethargy. No daytime sleepiness. EENT: No headache. No blurred vision or double vision, no loss of vision. No loss of Hearing, no ringing in the ears, no dizziness. No nasal drainage or congestion. No epistaxis. No sore throat. Lungs: No shortness of breath, cough, no sputum production. No wheezing. Cardiovascular: No chest pain, no lower extremity edema. No palpitations. No paroxysmal nocturnal dyspnea. No orthopnea. No lightheadedness or dizziness. No syncopal episodes. Abdominal: Reports mild abdominal discomfort at the epigastric area. Denies nausea, denies vomiting. No diarrhea. No constipation. No bloody or tarry stools reports loss of appetite. Genitourinary: No dysuria, increased frequency, urgency. No urinary retention. Musculoskeletal: No myalgias. No muscle weakness, no gait dysfunction, no frequent falls. No back pain. No neck pain. Integumentary: No wounds, no lesions. No rash or pruritus. No unusual bruising. No change in hair or nails. Neurologic: No aphasia. No facial droop. No change in mentation. No head injury. No headache. No paralysis. No paresthesia. Psychiatric: No depression. No anxiety. No mood swings. Endocrine: No abnormal blood sugars. No weight change. No excessive sweating or thirst. No cold intolerance. PHYSICAL EXAMINATION Gen: This is an 82-year-old female. Patient is resting in bed and appears to be in no acute distress. HEENT: Head is atraumatic, normocephalic. Pupils equal, round. Sclerae is anicteric. NECK: Supple. No JVD. No lymphadenopathy. No thyromegaly. LUNGS: Clear to auscultation. No wheezes or rhonchi. No intercostal retractions. HEART: First heart sound is depressed second heart sound is normal. There is a 2/6 systolic ejection murmur at the left sternal border. No S3, S4. ABDOMEN: Soft. No masses. Surgical puncture sites are glued, edges well approximated, no erythema or drainage. EXTREMITIES: No pedal edema. No calf tenderness. Dorsalis pedis +2 bilaterally. Dark blue ecchymosis to the right foot. NEUROLOGICAL: Patient is awake, alert and oriented x3. Cranial nerves 2 through 12 are grossly intact. ASSESSMENT AND PLAN 1. post operative day #1 status post paraesophageal hernia and gastric volvulus repair with a mesh. Patient pain is controlled with Tylenol at this time, try to avoid using Dilaudid and the list needed, increase activity, continue incentive spirometer, continue to monitor the patient ray closely, continue patient on clear liquid diet for the next 24 hours. 2. Hypertensive emergency. discontinue Vasotec continue patient on losartan 50 minute gram orally twice every day. 3. Mild leukocytosis secondary to gastric volvulus. resolved repeat CBC tomorrow morning. 4. Hyperglycemia without history of diabetes. stable. 5. Hyperlipidemia. Continue low-cholesterol diet, exercise and weight loss. 6. Varicose veins of the bilateral lower extremities, stable. JERICHO cavazos. 7. Spondylosis of the lumbar sacral spine, stable. 8. Gastroesophageal reflux disease and hiatal hernia. Protonix 40 mg IVP daily. 9. DVT prophylaxis. Heparin 5000 units subcutaneously every 8 hours. 10. Increase activity. 11. Home on Tuesday. DISCHARGE PLAN Home. Objective - Vital Signs Vital signs: Vital Signs Temp 98.5 F 05/08/22 08:00 Pulse 85 05/08/22 08:00 Resp 17 05/08/22 02:02 BP 155/76 05/08/22 08:00 Pulse Ox 86 L 05/08/22 08:00 FiO2 Intake & Output 05/07/22 05/08/22 05/08/22 18:59 06:59 18:59 Intake Total 950 Output Total 50 Balance 900 Intake: IV 950 Output: Estimated Blood Loss 50 Other: Voiding Method Toilet # Voids 2 1 - Labs CBC & Chem 7: 05/07/22 06:07 05/07/22 06:07
--- NOTE | 2022-05-08 15:05 | P.PN ---
Subjective Progress Note Date: 05/08/22 CHIEF COMPLAINT: Paraesophageal hiatal hernia HISTORY OF PRESENT ILLNESS: The patient is a 82-year-old female status post repair of paraesophageal hiatal hernia. She is ambulating. She is tolerating l iquids. No reports of nausea and vomiting.She denies chest pain. Pain well controlled. ROS: No reports of nausea and vomiting. No bowel movements. No fevers or chills. No new chest pain. PHYSICAL EXAM: VITAL SIGNS: Reviewed CONSTITUTIONAL: Well developed and in no acute distress. EYES: Conjuctivae without sclera icterus. Extraocular movements grossly intact. HEAD, EARS, NOSE, THROAT: Moist buccal mucosa. Head is atraumatic, normocephalic. Hears conversational speech. No nasal drainage. RESPIRATORY: Non-labored respirations and equal bilateral excursions. CARDIOVASCULAR: Palpable 2+ radial pulses. ABDOMEN: Incision is intact. MUSCULOSKELETAL: No gross deformity of the lower extremities noted. No clubbing. No cyanosis. SKIN: Good skin turgor. Well perfused. NEUROLOGIC: Cranial nerves II through XII grossly intact. No focal or lateralizing signs. PSYCH: Appropriate affect. Alert and oriented to person, place and time. CLINICAL LABS: Reviewed. WBC 10.26, yesterday ASSESSMENT: 1. Paraesophageal hiatal hernia PLAN: 1. Recommended esophagram for hiatal hernia repair 2. Strict no straws or carbonated beverages reviewed with patient and family bedside 3. Dietitian consultation for Hiatal hernia surgery Objective - Vital Signs Vital signs: Vital Signs Temp 98.5 F 05/08/22 08:00 Pulse 85 05/08/22 08:00 Resp 17 05/08/22 02:02 BP 155/76 05/08/22 08:00 Pulse Ox 86 L 05/08/22 08:00 FiO2 Intake & Output 05/07/22 05/08/22 05/08/22 18:59 06:59 18:59 Intake Total 950 Output Total 50 Balance 900 Intake: IV 950 Output: Estimated Blood Loss 50 Other: Voiding Method Toilet # Voids 2 1 - Labs CBC & Chem 7: 05/07/22 06:07 05/07/22 06:07
[2022-05-09] MEDS: ACETAMINOPHEN TAB 325 MG TAB PO PRN ×3 (01:50→17:14)
--- NOTE | 2022-05-09 08:35 | P.PN ---
Subjective Progress Note Date: 05/09/22 Principal diagnosis: Preoperative cardiac assessment The patient is a pleasant 82-year-old female patient was hypertension and dyslipidemia who was admitted to the hospital with abdominal discomfort and nausea and vomiting and she was diagnosed with hiatal hernia beach she underwent surgery yesterday. May [id number] She was seen this morning. She is over asymptomatic from the cardiovascular standpoint of view and she remains hemodynamically stable. The pressure is s lightly on the upper limits of normal. From a cardiac standpoint of view, I would continue the current medical regimen. We will adjust the blood pressure medication if the pressure continues to be elevated. May [id number] The patient was seen this morning. She is asymptomatic from a cardiovascular standpoint of view, and she is also hemodynamically stable. She reports no pain in the chest or shortness of breath and no dizziness or lightheadedness and no feeling of heart racing or fluttering or presyncope or syncope. The pressure seems to be under good control on the current medical regimen. We will follow- up with the patient on when necessary case Objective - Vital Signs Vital signs: Vital Signs Temp 98.0 F 05/09/22 07:37 Pulse 77 05/09/22 07:37 Resp 18 05/09/22 07:37 BP 132/78 05/09/22 07:37 Pulse Ox 97 05/09/22 07:37 FiO2 Intake & Output 05/08/22 05/09/22 05/09/22 18:59 06:59 18:59 Other: Voiding Method Toilet # Voids 2 1 - Constitutional General appearance: Present: no acute distress - Respiratory Respiratory: bilateral: CTA - Cardiovascular Rhythm: regular Heart sounds: normal: S1, S2 - Labs CBC & Chem 7: 05/07/22 06:07 05/07/22 06:07 Assessment and Plan Assessment: Assessment Status post hiatal hernia surgery Hypertension Dyslipidemia Plan The patient is asymptomatic She is clinically stable Pressure is under good control on the current medical regimen Follow-up with the patient on when necessary patient
[2022-05-09] MEDS: LOSARTAN 50 MG TAB PO SCH ×2 (08:46→21:57)
[2022-05-09] MEDS: SODIUM CHLORIDE 0.9% 1,000 ML IV SCH (08:46)
[2022-05-09] MEDS: HEPARIN SODIUM,PORCINE/PF 5,000 UNIT/0.5 ML SYRINGE SQ SCH ×2 (08:46→21:57)
[2022-05-09] MEDS: PANTOPRAZOLE 40 MG/10 ML VIAL IVP SCH (08:47)
[2022-05-09 09:25] LABS: Basophils # (A) 0.04 X 10*3/uL (0.00-0.10); Basophils % (A) 0.6 %; Eosinophils # (A) 0.16 X 10*3/uL (0.04-0.35); Eosinophils % (A) 2.4 %; HCT 36.3 % (37.2-46.3); HGB 11.4 g/dL (12.0-15.0); Immature Grans, Automated 0.6 %; Lymphocytes # (A) 1.77 X 10*3/uL (0.90-5.00); MCH 30.6 pg (27.0-32.0); MCHC 31.4 g/dL (32.0-37.0); MCV 97.3 fL (80.0-97.0); Mean Platelet Volume 12.3 fL (9.5-12.2); Monocytes % (A) 10.7 %; NRBC Per 100 WBC 0 /100 WBCS (0.0-0.0); Neutrophils # (A) 3.84 X 10*3/uL (1.80-7.70); Neutrophils % (A) 58.7 %; Platelet Count 142 X 10*3/uL (140-440); RBC 3.73 X 10*6/uL (4.10-5.20); RDW 13.4 % (11.5-14.5); WBC 6.55 X 10*3/uL (4.50-10.00)
--- NOTE | 2022-05-09 09:52 | P.PN ---
Subjective Progress Note Date: 05/09/22 HISTORY OF PRESENT ILLNESS This is an 82-year-old female patient with past medical history of hypertension, hyperlipidemia, varicose veins. Patient complains of nausea and vomiting and some discomfort in the epigastric area. Onset of symptoms was yesterday. Symptoms worsened last evening when she tried to call for dinner. She denies having any fever or chills, no diarrhea. No chest pain and no shortness of breath at rest. Patient came into the [facility] emergency center for evaluation. Patient was afebrile, heart rate 99, blood pressure 184/104, pulse ox 90% on room air. WBC 11.9, hemoglobin 15, platelet count 186. Lites normal. BUN 21 creatinine 0.83. Blood sugar 204. Patient does not have history of diabetes. Calcium 9.1. Total bilirubin 0.7, AST 27, ALT 15, alkaline phosphatase 78. Troponin 0.0-3. ProBNP 702. Albumin 4.2. Lipase 49. Urinalysis clear with 1+ protein, 1+ ketones negative nitrate, negative leukoesterase. Coronavirus PCR not detected. Echocardiogram from 01/2021 revealed EF greater than 55%, mild aortic valve scler osis, mild mitral regurgitation, mild tricuspid regurgitation. Chest x-ray reveals CHF exacerbation, cardiomegaly with bilateral mild interstitial edema. Previous chest x-ray from 01/2021 revealed large intrathoracic hiatal hernia. CAT scan of the abdomen and pelvis with contrast revealed large hiatal hernia with fluid dilated stomach above and below diaphragm. There is abnormal twisting as the gastroduodenal junction is above the diaphragm and the transition point there is no dilatation of the duodenal sweep and distal bowel loops. This is likely being compressed by the herniated dilated fluid filled stomach at level of the diaphragmatic hiatus. Surgical consultation is advised. Patient is seen today in the emergency center, she is waiting for surgical evaluation, she is scheduled for surgical intervention today. We will add in a cardiology consult for clearance and EKG ordered 05/07: Patient had NG tube placed yesterday while in the emergency center with return of large amount of fluid. This did help her discomfort at the time. She is now seen in the postop period on the [facility] floor. 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 She denies having any pain at this time. She is quite groggy and tired feeling. She is having pain in the shoulder areas. We will ask general surgery to clarify nothing by mouth/diet status. Heparin added for DVT prophylaxis and patient has Dilaudid available as needed for pain control. Patient is afebrile, heart rate 80, blood pressure 143/78, pulse ox 90-96% on 2 L nasal cannula. Echocardiogram reveals EF of 50-55%, mild mitral regurgitation, mild tricuspid regurgitation. 05/08: Patient is laying down in bed in no apparent distress, she is feeling a bit weaker today, has no great appetite, she continues to be a clear fluid diet, she is passing gas, she is urinating well, she has no abdominal pain at this time she is not nauseated, she seems to be walking around using a walker hopefully will be a particular out of the hospital in the next 24-48 hours. 05/09: Patient is sitting at the edge of the bed , tolerating clears well, she still not very hungry with poor appetite. she denies any chest pain, shortness of breath, she denies any abdominal pain, nausea, she is passing gas no bowel movement yet, increase activity and hopefully will be discharged home in AM. REVIEW OF SYSTEMS Constitutional: No fever, no chills, no night sweats. No weight change. No weakness, fatigue or lethargy. No daytime sleepiness. EENT: No headache. No blurred vision or double vision, no loss of vision. No loss of Hearing, no ringing in the ears, no dizziness. No nasal drainage or congestion. No epistaxis. No sore throat. Lungs: No shortness of breath, cough, no sputum production. No wheezing. Cardiovascular: No chest pain, no lower extremity edema. No palpitations. No paroxysmal nocturnal dyspnea. No orthopnea. No lightheadedness or dizziness. No syncopal episodes. Abdominal: Reports mild abdominal discomfort at the epigastric area. Denies nausea, denies vomiting. No diarrhea. No constipation. No bloody or tarry stools reports loss of appetite. Genitourinary: No dysuria, increased frequency, urgency. No urinary retention. Musculoskeletal: No myalgias. No muscle weakness, no gait dysfunction, no frequent falls. No back pain. No neck pain. Integumentary: No wounds, no lesions. No rash or pruritus. No unusual bruising. No change in hair or nails. Neurologic: No aphasia. No facial droop. No change in mentation. No head injury. No headache. No paralysis. No paresthesia. Psychiatric: No depression. No anxiety. No mood swings. Endocrine: No abnormal blood sugars. No weight change. No excessive sweating or thirst. No cold intolerance. PHYSICAL EXAMINATION Gen: This is an 82-year-old female. Patient is resting in bed and appears to be in no acute distress. HEENT: Head is atraumatic, normocephalic. Pupils equal, round. Sclerae is anicteric. NECK: Supple. No JVD. No lymphadenopathy. No thyromegaly. LUNGS: Clear to auscultation. No wheezes or rhonchi. No intercostal re tractions. HEART: First heart sound is depressed second heart sound is normal. There is a 2/6 systolic ejection murmur at the left sternal border. No S3, S4. ABDOMEN: Soft. No masses. Surgical puncture sites are glued, edges well approximated, no erythema or drainage. EXTREMITIES: No pedal edema. No calf tenderness. Dorsalis pedis +2 bilaterally. Dark blue ecchymosis to the right foot. NEUROLOGICAL: Patient is awake, alert and oriented x3. Cranial nerves 2 through 12 are grossly intact. ASSESSMENT AND PLAN 1. post operative day #2 status post paraesophageal hernia and gastric volvulus repair with a mesh. Patient pain is controlled with Tylenol at this time, try to avoid using Dilaudid and the list needed, increase activity, continue incentive spirometer, continue to monitor the patient ray closely, continue patient on clear liquid diet for the next 24 hours. 2. Hypertensive emergency. discontinue Vasotec continue patient on losartan 50 minute gram orally twice every day. 3. Mild leukocytosis secondary to gastric volvulus. resolved repeat CBC tomorrow morning. 4. Hyperglycemia without history of diabetes. stable. 5. Hyperlipidemia. Continue low-cholesterol diet, exercise and weight loss. 6. Varicose veins of the bilateral lower extremities, stable. JERICHO cavazos. 7. Spondylosis of the lumbar sacral spine, stable. 8. Gastroesophageal reflux disease and hiatal hernia. Protonix 40 mg IVP daily. 9. DVT prophylaxis. Heparin 5000 units subcutaneously every 8 hours. 10. Increase activity. 11. Home on Tuesday. DISCHARGE PLAN Home. Objective - Vital Signs Vital signs: Vital Signs Temp 98.0 F 05/09/22 07:37 Pulse 77 05/09/22 07:37 Resp 18 05/09/22 07:37 BP 132/78 05/09/22 07:37 Pulse Ox 97 05/09/22 07:37 FiO2 Intake & Output 05/08/22 05/09/22 05/09/22 18:59 06:59 18:59 Other: Voiding Method Toilet # Voids 2 1 - Labs CBC & Chem 7: 05/09/22 04:26 05/07/22 06:07 Labs: Abnormal Lab Results - Last 24 Hours (Table) 05/09/22 Range/Units 04:26 RBC 3.73 L (4.10-5.20) X 10*6/uL Hgb 11.4 L (12.0-15.0) g/dL Hct 36.3 L (37.2-46.3) % MCV 97.3 H (80.0-97.0) fL MCHC 31.4 L (32.0-37.0) g/dL MPV 12.3 H (9.5-12.2) fL
[2022-05-09 10:11] LABS: African American GFR (CKD) 103.7 (60.0-200.0); Albumin 3.1 g/dL (3.8-4.9); Albumin/Globulin Ratio 1.94 (1.60-3.17); BUN/Creat Ratio 19.8 Ratio (12.00-20.00); Blood Urea Nitrogen 9.9 mg/dL (9.0-27.0); Calcium 8.2 mg/dL (8.7-10.3); Globulin 1.6 g/dL (1.6-3.3); Non-African American GFR(CKD) 89.5 (60.0-200.0); Potassium 3.8 mmol/L (3.5-5.5); Total Bilirubin 0.7 mg/dL (0.30-1.20); Total Protein 4.7 g/dL (6.2-8.2)
--- NOTE | 2022-05-09 13:40 | P.PN ---
Subjective Progress Note Date: 05/09/22 CHIEF COMPLAINT: Paraesophageal hiatal hernia HISTORY OF PRESENT ILLNESS: The patient is a 82-year-old female status post repair of paraesophageal hiatal hernia. She is resting colder. No complaints. Tolerating liquid diet. ROS: No reports of nausea and vomiting. No bowel movements. No fevers or chills. No new chest pain. PHYSICAL EXAM: VITAL SIGNS: Reviewed CONSTITUTIONAL: Well developed and in no acute distress. EYES: Conjuctivae without sclera icterus. Extraocular movements grossly intact. HEAD, EARS, NOSE, THROAT: Moist buccal mucosa. Head is atraumatic, normocephalic. Hears conversational speech. No nasal drainage. RESPIRATORY: Non-labored respirations and equal bilateral excursions. CARDIOVASCULAR: Palpable 2+ radial pulses. ABDOMEN: Incision is intact. MUSCULOSKELETAL: No gross deformity of the lower extremities noted. No clubbing. No cyanosis. SKIN: Good skin turgor. Well perfused. NEUROLOGIC: Cranial nerves II through XII grossly intact. No focal or latera lizing signs. PSYCH: Appropriate affect. Alert and oriented to person, place and time. CLINICAL LABS: Reviewed. WBC normal. No leukocytosis. ASSESSMENT: 1. Paraesophageal hiatal hernia PLAN: 1. Continue Edgar diet with no straws or carbonated beverages. 2. Await esophagram prior to advancement of diet Objective - Vital Signs Vital signs: Vital Signs Temp 98.0 F 05/09/22 07:37 Pulse 77 05/09/22 07:37 Resp 18 05/09/22 07:37 BP 132/78 05/09/22 07:37 Pulse Ox 97 05/09/22 07:37 FiO2 Intake & Output 05/08/22 05/09/22 05/09/22 18:59 06:59 18:59 Other: Voiding Method Toilet # Voids 2 1 - Labs CBC & Chem 7: 05/09/22 04:26 05/09/22 04:26 Labs: Abnormal Lab Results - Last 24 Hours (Table) 05/09/22 05/09/22 Range/Units 04:26 04:26 RBC 3.73 L (4.10-5.20) X 10*6/uL Hgb 11.4 L (12.0-15.0) g/dL Hct 36.3 L (37.2-46.3) % MCV 97.3 H (80.0-97.0) fL MCHC 31.4 L (32.0-37.0) g/dL MPV 12.3 H (9.5-12.2) fL Anion Gap 7.00 L (10.00-18.00) mmol/L Creatinine 0.5 L (0.6-1.5) mg/dL Calcium 8.2 L (8.7-10.3) mg/dL Total Protein 4.7 L (6.2-8.2) g/dL Albumin 3.1 L (3.8-4.9) g/dL
[2022-05-10] MEDS: ACETAMINOPHEN TAB 325 MG TAB PO PRN ×2 (02:42→23:02)
[2022-05-10] MEDS: SODIUM CHLORIDE 0.9% 1,000 ML IV SCH ×2 (04:32→20:12)
[2022-05-10] MEDS: PANTOPRAZOLE 40 MG/10 ML VIAL IVP SCH ×2 (08:23→08:49)
[2022-05-10] MEDS: HEPARIN SODIUM,PORCINE/PF 5,000 UNIT/0.5 ML SYRINGE SQ SCH ×2 (08:23→20:11)
[2022-05-10] MEDS: LOSARTAN 50 MG TAB PO SCH ×2 (08:23→20:11)
--- NOTE | 2022-05-10 09:39 | CDI ---
Documentation Clarification Form Date: 05/10/2022 09:19:53 AM From: Ewa Raphael RN CCDS Admit Date: 05/06/2022 11:34:00 AM Patient Name: Anahi Naranjo Visit Number: [id number] Discharge Date: ATTENTION: The Clinical Documentation Specialists (CDI) and [facility] Coding Staff appreciate your assistance in clarifying documentation. Please respond to the clarification below the line at the bottom and electronically sign. The CDI & [facility] Coding staff will review the response and follow-up if needed. Please note: Queries are made part of the Legal Health Record. If you have any questions, please contact the author of this message via ITS. Dr. Avelino Boudreaux Your patient has the documented diagnosis of unspecified CHF 05/06, Cardiology consult. Additional information regarding the type, acuity of CHF is requested. History/Risk Factors: 82-year-old female presents to ED with nausea and vomiting. Medical History: HTN. Home medications: Cozaar 50mg PO BID; Lasix 40mg PO Daily. 05/06, H&P. Clinical Indicators: VS/Pulse OX: 05/06 B/P 184/104; HR 99; Temp 98.5F Oral; RR 18; SpO2 90% room air. BNP: 05/06 702 Echocardiogram Results: 05/06 Left ventricular ejection fraction is estimated at 50-55% Moderately increased left ventricular wall thickness. Anterior Septal hypokinesis. Preserved LV function with anteroseptal and apical hypokinesis. Chest X Ray: 05/06 Findings consistent with CHF exacerbation as there is cardiomegaly with bilateral mild interstitial edema noted. Cardiology Consult: 05/06 Chest Xray consistent with CHF exacerbation as there is cardiomegaly with bilateral mild interstitial edema. Treatment: 05/06 Echo ordered by Cardiology; 05/06 Cozaar 50mg PO BID NAGA; 05/06 Lopressor 5mg IVP x 1 (not given) In your professional opinion, can you please clarify the acuity and type of CHF if known? [ ] Chronic Diastolic Heart Failure (preserved EF) [ ] Acute on Chronic Diastolic Heart Failure (preserved EF) [ ] CHF ruled out [ ] Other, please specify [ ] Unable to determine (Template Last Revised: September 2020) MTDD
--- NOTE | 2022-05-10 10:43 | FL ---
SINGLE CONTRAST ESOPHAGRAM: CLINICAL HISTORY: 82-year-old female status post hiatal hernia repair, rule out leak/blockage. TECHNIQUE: Single contrast exam performed with 50 ml Isovue-370 contrast. Total fluoroscopy time: 1 minute 20 seconds. Total images: 38. FINDINGS: The patient swallowed oral contrast without difficulty or delay. Esophageal peristalsis shows modera te tertiary waves and some possible mild diverticular change distal third of the esophagus. There is mild relative narrowing at the level of the GE junction but without any obstruction. There is left ba silar opacity noted. Fluid and air distends the stomach within the upper abdomen. There is no extravasation of contrast to suggest leak. No postsurgical free air is identified on either side. IMPRESSION: 1. No evidence of leak status post hiatal hernia repair. 2. There is mild relative narrowing at the GE junction, possibly due to postoperative edema. No signi ficant obstruction. Follow-up as clinically indicated. 3. Left basilar opacity could represent a combination of pleural effusion with adjacent atelectasis a nd/or consolidation.
--- NOTE | 2022-05-10 13:48 | P.PN ---
Subjective Progress Note Date: 05/10/22 HISTORY OF PRESENT ILLNESS This is an 82-year-old female patient with past medical history of hypertension, hyperlipidemia, varicose veins. Patient complains of nausea and vomiting and some discomfort in the epigastric area. Onset of symptoms was yesterday. Symptoms worsened last evening when she tried to call for dinner. She denies having any fever or chills, no diarrhea. No chest pain and no shortness of breath at rest. Patient came into the [facility] emergency center for evaluation. Patient was afebrile, heart rate 99, blood pressure 184/104, pulse ox 90% on room air. WBC 11.9, hemoglobin 15, platelet count 186. Lites normal. BUN 21 creatinine 0.83. Blood sugar 204. Patient does not have history of diabetes. Calcium 9.1. Total bilirubin 0.7, AST 27, ALT 15, alkaline phosphatase 78. Troponin 0.0-3. ProBNP 702. Albumin 4.2. Lipase 49. Urinalysis clear with 1+ protein, 1+ ketones negative nitrate, negative leukoesterase. Coronavirus PCR not detected. Echocardiogram from 01/2021 revealed EF greater than 55%, mild aortic valve scler osis, mild mitral regurgitation, mild tricuspid regurgitation. Chest x-ray reveals CHF exacerbation, cardiomegaly with bilateral mild interstitial edema. Previous chest x-ray from 01/2021 revealed large intrathoracic hiatal hernia. CAT scan of the abdomen and pelvis with contrast revealed large hiatal hernia with fluid dilated stomach above and below diaphragm. There is abnormal twisting as the gastroduodenal junction is above the diaphragm and the transition point there is no dilatation of the duodenal sweep and distal bowel loops. This is likely being compressed by the herniated dilated fluid filled stomach at level of the diaphragmatic hiatus. Surgical consultation is advised. Patient is seen today in the emergency center, she is waiting for surgical evaluation, she is scheduled for surgical intervention today. We will add in a cardiology consult for clearance and EKG ordered 05/07: Patient had NG tube placed yesterday while in the emergency center with return of large amount of fluid. This did help her discomfort at the time. She is now seen in the postop period on the [facility] floor. 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 She denies having any pain at this time. She is quite groggy and tired feeling. She is having pain in the shoulder areas. We will ask general surgery to clarify nothing by mouth/diet status. Heparin added for DVT prophylaxis and patient has Dilaudid available as needed for pain control. Patient is afebrile, heart rate 80, blood pressure 143/78, pulse ox 90-96% on 2 L nasal cannula. Echocardiogram reveals EF of 50-55%, mild mitral regurgitation, mild tricuspid regurgitation. 05/08: Patient is laying down in bed in no apparent distress, she is feeling a bit weaker today, has no great appetite, she continues to be a clear fluid diet, she is passing gas, she is urinating well, she has no abdominal pain at this time she is not nauseated, she seems to be walking around using a walker hopefully will be a particular out of the hospital in the next 24-48 hours. 05/09: Patient is sitting at the edge of the bed , tolerating clears well, she still not very hungry with poor appetite. she denies any chest pain, shortness of breath, she denies any abdominal pain, nausea, she is passing gas no bowel movement yet, increase activity and hopefully will be discharged home in AM. 05/10: Patient remains afebrile, heart rate 77, blood pressure 133/79, pulse ox 91-92% on room air. Patient is continued on [place] diet with no straws or carbonated beverages, start regular clear liquid diet. Patient is met with dietitian regarding diet to be maintained at home. Patient has been seen by physical therapy and recommended home with home care. Wheeled walker ordered by correctional case records supervisor. Medication reconciliation will be reviewed in case patient is discharged home later today. REVIEW OF SYSTEMS Constitutional: No fever, no chills, no night sweats. No weight change. No weakness, fatigue or lethargy. No daytime sleepiness. EENT: No headache. No blurred vision or double vision, no loss of vision. No loss of Hearing, no ringing in the ears, no dizziness. No nasal drainage or congestion. No epistaxis. No sore throat. Lungs: No shortness of breath, cough, no sputum production. No wheezing. Cardiovascular: No chest pain, no lower extremity edema. No palpitations. No paroxysmal nocturnal dyspnea. No orthopnea. No lightheadedness or dizziness. No syncopal episodes. Abdominal: Reports mild abdominal discomfort at the epigastric area. Denies na usea, denies vomiting. No diarrhea. No constipation. No bloody or tarry stools reports loss of appetite. Genitourinary: No dysuria, increased frequency, urgency. No urinary retention. Musculoskeletal: No myalgias. No muscle weakness, no gait dysfunction, no frequent falls. No back pain. No neck pain. Integumentary: No wounds, no lesions. No rash or pruritus. No unusual bruising. No change in hair or nails. Neurologic: No aphasia. No facial droop. No change in mentation. No head injury. No headache. No paralysis. No paresthesia. Psychiatric: No depression. No anxiety. No mood swings. Endocrine: No abnormal blood sugars. No weight change. No excessive sweating or thirst. No cold intolerance. PHYSICAL EXAMINATION Gen: This is an 82-year-old female. Patient is sitting on the and of the bed and appears to be in no acute distress. HEENT: Head is atraumatic, normocephalic. Pupils equal, round. Sclerae is anicteric. NECK: Supple. No JVD. No lymphadenopathy. No thyromegaly. LUNGS: Clear to auscultation. No wheezes or rhonchi. No intercostal retractions. HEART: First heart sound is depressed second heart sound is normal. There is a 2/6 systolic ejection murmur at the left sternal border. No S3, S4. ABDOMEN: Soft. No masses. Surgical puncture sites are glued, edges well approximated, no erythema or drainage. EXTREMITIES: No pedal edema. No calf tenderness. Dorsalis pedis +2 bilaterally. Dark blue ecchymosis to the right foot. NEUROLOGICAL: Patient is awake, alert and oriented x3. Cranial nerves 2 through 12 are grossly intact. ASSESSMENT AND PLAN 1. post operative day #3 status post paraesophageal hernia and gastric volvulus repair with a mesh. Patient pain is controlled with Tylenol at this time, try to avoid using Dilaudid and the list needed, increase activity, continue incentive spirometer, continue to monitor the patient ray closely, continue patient on clear liquid augusto diet for the next 24 hours. 2. Hypertensive emergency. discontinue Vasotec continue patient on losartan 50 minute gram orally twice every day. 3. Mild leukocytosis secondary to gastric volvulus. resolved repeat CBC tomorrow morning. 4. Hyperglycemia without history of diabetes. stable. 5. Hyperlipidemia. Continue low-cholesterol diet, exercise and weight loss. 6. Varicose veins of the bilateral lower extremities, stable. JERICHO cavazos. 7. Spondylosis of the lumbar sacral spine, stable. 8. Gastroesophageal reflux disease and hiatal hernia. Protonix 40 mg IVP daily. 9. DVT prophylaxis. Heparin 5000 units subcutaneously every 8 hours. 10. Increase activity. DISCHARGE PLAN Home. Wheeled walker ordered for home. PT has recommended home with homecare. Impression and plan of care have been directed as dictated by the signing physician. Parul Roberts nurse practitioner acting as scribe for signing physician. Objective - Vital Signs Vital signs: Vital Signs Temp 97.9 F 05/10/22 08:00 Pulse 77 05/10/22 08:00 Resp 15 05/10/22 08:00 BP 133/79 05/10/22 08:00 Pulse Ox 91 L 05/10/22 08:00 FiO2 Intake & Output 05/09/22 05/10/22 05/10/22 18:59 06:59 18:59 Other: Voiding Method Toilet # Voids 2 - Labs CBC & Chem 7: 05/09/22 04:26 05/09/22 04:26 Labs: Abnormal Lab Results - Last 24 Hours (Table) 05/09/22 05/09/22 Range/Units 04:26 04:26 RBC 3.73 L (4.10-5.20) X 10*6/uL Hgb 11.4 L (12.0-15.0) g/dL Hct 36.3 L (37.2-46.3) % MCV 97.3 H (80.0-97.0) fL MCHC 31.4 L (32.0-37.0) g/dL MPV 12.3 H (9.5-12.2) fL Anion Gap 7.00 L (10.00-18.00) mmol/L Creatinine 0.5 L (0.6-1.5) mg/dL Calcium 8.2 L (8.7-10.3) mg/dL Total Protein 4.7 L (6.2-8.2) g/dL Albumin 3.1 L (3.8-4.9) g/dL
[2022-05-10 14:23] VITALS: BMI 32.8
--- NOTE | 2022-05-10 15:34 | P.PN ---
Progress Note - Text Progress Note Date: 05/10/22 Patient is doing fairly well. Her esophagram today shows no evidence of any obstruction or leak. On exam vital signs are stable. Abdomen soft. Despite discharged home tomorrow.
[2022-05-11] MEDS: PANTOPRAZOLE 40 MG/10 ML VIAL IVP SCH (07:38)
[2022-05-11] MEDS ORDERED: FUROSEMIDE 10 MG/ML 4 ML VIAL IV STA (08:55)
[2022-05-11] MEDS ORDERED: FUROSEMIDE 40 MG TAB PO SCH (09:00)
[2022-05-11] MEDS ORDERED: POTASSIUM CHLORIDE ER 20 MEQ TAB.ER PO SCH (09:00)
[2022-05-11] MEDS ORDERED: FUROSEMIDE 20 MG TAB PO STA (09:17)
[2022-05-11 09:21] VITALS: BP 168/75; RESP 16; TEMP 98.2
[2022-05-11 09:40] LABS: ALT 23 U/L (4-34); AST 48 U/L (14-36); African American GFR (CKD) >90 (>60 ml/min/1.73 sqM); Albumin 2.8 g/dL (3.5-5.0); Albumin/Globulin Ratio 1.5; Alkaline Phosphatase 63 U/L (38-126); Anion Gap 6 mmol/L; Blood Urea Nitrogen 6 mg/dL (7-17); Calcium 8.3 mg/dL (8.4-10.2); Carbon Dioxide 28 mmol/L (22-30); Chloride 105 mmol/L (98-107); Globulin 1.9 g/dL; Glucose 111 mg/dL (74-99); Magnesium 1.8 mg/dL (1.6-2.3); Non-African American GFR(CKD) 88 (>60 ml/min/1.73 sqM); Potassium 3.2 mmol/L (3.5-5.1); Sodium 139 mmol/L (137-145); Total Bilirubin 0.9 mg/dL (0.2-1.3); Total Protein 4.7 g/dL (6.3-8.2)
[2022-05-11 09:41] LABS: MCH 31.8 pg (25.0-35.0); MCHC 32.5 g/dL (31.0-37.0); Mean Platelet Volume 9.3; Platelet Count 178 k/uL (150-450); RBC 3.68 m/uL (3.80-5.40); RDW 13.1 % (11.5-15.5); WBC 4.9 k/uL (3.8-10.6)
[2022-05-11 09:43] LABS: HGB 11.7 gm/dL (11.4-16.0)
[2022-05-11] MEDS ORDERED: POTASSIUM CHLORIDE ER 20 MEQ TAB.ER PO STA (10:33)
[2022-05-11] MEDS: LOSARTAN 50 MG TAB PO SCH (10:46)
[2022-05-11] MEDS: HEPARIN SODIUM,PORCINE/PF 5,000 UNIT/0.5 ML SYRINGE SQ SCH (10:47)
[2022-05-11 10:48] VITALS: PULSE 81
--- NOTE | 2022-05-11 11:03 | P.PN ---
Subjective Progress Note Date: 05/11/22 HISTORY OF PRESENT ILLNESS This is an 82-year-old female patient with past medical history of hypertension, hyperlipidemia, varicose veins. Patient complains of nausea and vomiting and some discomfort in the epigastric area. Onset of symptoms was yesterday. Symptoms worsened last evening when she tried to call for dinner. She denies having any fever or chills, no diarrhea. No chest pain and no shortness of breath at rest. Patient came into the [facility] emergency center for evaluation. Patient was afebrile, heart rate 99, blood pressure 184/104, pulse ox 90% on room air. WBC 11.9, hemoglobin 15, platelet count 186. Lites normal. BUN 21 creatinine 0.83. Blood sugar 204. Patient does not have history of diabetes. Calcium 9.1. Total bilirubin 0.7, AST 27, ALT 15, alkaline phosphatase 78. Troponin 0.0-3. ProBNP 702. Albumin 4.2. Lipase 49. Urinalysis clear with 1+ protein, 1+ ketones negative nitrate, negative leukoesterase. Coronavirus PCR not detected. Echocardiogram from 01/2021 revealed EF greater than 55%, mild aortic valve scler osis, mild mitral regurgitation, mild tricuspid regurgitation. Chest x-ray reveals CHF exacerbation, cardiomegaly with bilateral mild interstitial edema. Previous chest x-ray from 01/2021 revealed large intrathoracic hiatal hernia. CAT scan of the abdomen and pelvis with contrast revealed large hiatal hernia with fluid dilated stomach above and below diaphragm. There is abnormal twisting as the gastroduodenal junction is above the diaphragm and the transition point there is no dilatation of the duodenal sweep and distal bowel loops. This is likely being compressed by the herniated dilated fluid filled stomach at level of the diaphragmatic hiatus. Surgical consultation is advised. Patient is seen today in the emergency center, she is waiting for surgical evaluation, she is scheduled for surgical intervention today. We will add in a cardiology consult for clearance and EKG ordered 05/07: Patient had NG tube placed yesterday while in the emergency center with return of large amount of fluid. This did help her discomfort at the time. She is now seen in the postop period on the [facility] floor. 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 She denies having any pain at this time. She is quite groggy and tired feeling. She is having pain in the shoulder areas. We will ask general surgery to clarify nothing by mouth/diet status. Heparin added for DVT prophylaxis and patient has Dilaudid available as needed for pain control. Patient is afebrile, heart rate 80, blood pressure 143/78, pulse ox 90-96% on 2 L nasal cannula. Echocardiogram reveals EF of 50-55%, mild mitral regurgitation, mild tricuspid regurgitation. 05/08: Patient is laying down in bed in no apparent distress, she is feeling a bit weaker today, has no great appetite, she continues to be a clear fluid diet, she is passing gas, she is urinating well, she has no abdominal pain at this time she is not nauseated, she seems to be walking around using a walker hopefully will be a particular out of the hospital in the next 24-48 hours. 05/09: Patient is sitting at the edge of the bed , tolerating clears well, she still not very hungry with poor appetite. she denies any chest pain, shortness of breath, she denies any abdominal pain, nausea, she is passing gas no bowel movement yet, increase activity and hopefully will be discharged home in AM. 05/10: Patient remains afebrile, heart rate 77, blood pressure 133/79, pulse ox 91-92% on room air. Patient is continued on Nissenn diet with no straws or carbonated beverages, start regular clear liquid diet. Patient is met with dietitian regarding diet to be maintained at home. Patient has been seen by physical therapy and recommended home with home care. Wheeled walker ordered by case coordinator. Medication reconciliation will be reviewed in case patient is discharged home later today. 05/11: Yesterday, patient underwent an esophagram that showed no evidence of leak. Mild narrowing at the GE junction possibly due to postop edema. No significant obstruction. Left basilar opacities could represent a combination of pleural effusion with adjacent atelectasis and/or consolidation. Diet was a dvanced for dinner to full liquid diet, no straws and no carbonated beverages. Patient is utilizing incentive spirometry reaching 1000 ML's. Patient encouraged to use more frequently, every hour. Patient started on Lasix due to lower extremity edema. She has no IV access so 60 mg oral will be given today. Patient denies shortness of breath with activity. She states that diarrhea is better today. Repeat blood work reveals unremarkable CBC. Potassium is 3.2 replaced. Blood sugar 111. AST 48. Patient is cleared for discharge if surgery plans for discharge today. She is tolerating and ate a small amount of full liquid diet this morning. No nausea or vomiting but she continues to have decreased appetite. REVIEW OF SYSTEMS Constitutional: No fever, no chills, no night sweats. No weight change. No weakness, fatigue or lethargy. No daytime sleepiness. EENT: No headache. No blurred vision or double vision, no loss of vision. No loss of Hearing, no ringing in the ears, no dizziness. No nasal drainage or congestion. No epistaxis. No sore throat. Lungs: No shortness of breath, cough, no sputum production. No wheezing. Cardiovascular: No chest pain, reports lower extremity edema. No palpitations. No paroxysmal nocturnal dyspnea. No orthopnea. No lightheadedness or dizziness. No syncopal episodes. Abdominal: Reports mild abdominal discomfort at the epigastric area. Denies nausea, denies vomiting. No diarrhea. No constipation. No bloody or tarry stools reports loss of appetite. Genitourinary: No dysuria, increased frequency, urgency. No urinary retention. Musculoskeletal: No myalgias. No muscle weakness, no gait dysfunction, no frequent falls. No back pain. No neck pain. Integumentary: No wounds, no lesions. No rash or pruritus. No unusual bruising. No change in hair or nails. Neurologic: No aphasia. No facial droop. No change in mentation. No head injury. No headache. No paralysis. No paresthesia. Psychiatric: No depression. No anxiety. No mood swings. Endocrine: No abnormal blood sugars. No weight change. No excessive sweating or thirst. No cold intolerance. PHYSICAL EXAMINATION Gen: This is an 82-year-old female. Patient is sitting on the edge of the bed and appears to be in no acute distress. HEENT: Head is atraumatic, normocephalic. Pupils equal, round. Sclerae is anicteric. NECK: Supple. No JVD. No lymphadenopathy. No thyromegaly. LUNGS: Clear to auscultation. No wheezes or rhonchi. No intercostal retractions. HEART: First heart sound is depressed second heart sound is normal. There is a 2/6 systolic ejection murmur at the left sternal border. No S3, S4. ABDOMEN: Soft. No masses. Surgical puncture sites are glued, edges well approximated, no erythema or drainage. EXTREMITIES: 2+ pedal edema. No calf tenderness. Dorsalis pedis +2 bilatera lly. NEUROLOGICAL: Patient is awake, alert and oriented x3. Cranial nerves 2 through 12 are grossly intact. ASSESSMENT AND PLAN 1. post operative day #5 status post paraesophageal hernia and gastric volvulus repair with a mesh. Patient pain is controlled with Tylenol at this time, try to avoid using Dilaudid and the list needed, increase activity, continue incentive spirometer, continue to monitor the patient ray closely, continue patient on clear liquid augusto diet for the next 24 hours. 2. Hypertensive emergency. discontinue Vasotec continue patient on losartan 50 minute gram orally twice every day. 3. Mild leukocytosis secondary to gastric volvulus. 4. Hyperglycemia without history of diabetes. stable. 5. Hyperlipidemia. Continue low-cholesterol diet, exercise and weight loss. 6. Varicose veins of the bilateral lower extremities, stable. JERICHO maganae. 7. Spondylosis of the lumbar sacral spine, stable. 8. HALLEY. Patient started on Lasix 60 mg oral today and then resume her home dose of 40 mg daily along with potassium. 9. Hypokalemia. Patient is status post replacement with 40 mEq of potassium. 10. Gastroesophageal reflux disease and hiatal hernia. Protonix 40 mg IVP daily. 11. DVT prophylaxis. Heparin 5000 units subcutaneously every 8 hours. DISCHARGE PLAN Home. PT has recommended home with homecare. Impression and plan of care have been directed as dictated by the signing physician. Parul Roberts nurse practitioner acting as scribe for signing physician. Objective - Vital Signs Vital signs: Vital Signs Temp 98.4 F 05/11/22 02:00 Pulse 80 05/11/22 02:00 Resp 18 05/11/22 02:00 BP 128/80 05/11/22 02:00 Pulse Ox 93 L 05/11/22 02:00 FiO2 Intake & Output 05/10/22 05/11/22 05/11/22 18:59 06:59 18:59 Weight 68.946 kg Other: Voiding Method Toilet # Voids 1 2 # Bowel Movements 1 2 - Labs CBC & Chem 7: 05/11/22 09:15 05/11/22 09:15
[2022-05-11] MEDS: ACETAMINOPHEN TAB 325 MG TAB PO PRN (12:32)
--- NOTE | 2022-05-11 13:55 | P.DS ---
Providers Date of admission: 05/06/22 11:34 Expected date of discharge: 05/11/22 Attending physician: Shivam Cotton Consults: 05/06/22 11:07 Consult Physician Urgent Consulting Provider: Justo Dahl Consult Reason/Comments: Medical management Do you want consulting provider notified?: Yes 05/06/22 11:52 Consult Physician Stat Consulting Provider: Mark Bui Consult Reason/Comments: preop clearance Do you want consulting provider notified?: Yes Primary care physician: Justo Dahl Hospital Course: Discharge diagnosis Large paraesophageal hernia with gastric volvulus status post repair of paraesophageal hernia with mesh Hospital course This is a 82-year-old female who presented with nausea vomiting and epigastric abdominal pain. She has a known hiatal hernia in which she is dealing with epigastric discomfort in pain for about 2 years. She reports having episodes of heartburn and indigestion. Computed tomography scan abdomen and pelvis has shown a large hiatal hernia with fluid dilated stomach above and below diaphragm. There is abnormal twisting at the gastroduodenal junction above the diaphragm and the transition point there is is no dilatation of the duodenal sweep and distal bowel loops. This is likely being compressed by the herniated dilated fluid filled stomach at the level of the diaphragmatic hiatus. Patient admitted to the surgical service. She is status post paraesophageal hernia repair. Patient tolerated surgery well. Her pain is controlled. She is tolerating diet. She's afebrile. She has been up and ambulating. She has been having bowel movements. She is stable for discharge. Please refer to chart for any further details. Physician [employer] Process Worker note has been reviewed by physician. Signing provider agrees with the documented findings, assessment, and plan of care. Patient Condition at Discharge: Stable Plan - Discharge Summary Discharge Rx Participant: Yes New Discharge Prescriptions: New Acetaminophen Tab [Tylenol] 650 mg PO Q6HR PRN tab PRN Reason: Fever And/ Or Pain Continue Losartan [Cozaar] 50 mg PO BID Potassium Chloride [Klor-Con 20] 20 meq PO DAILY Furosemide [Lasix] 40 mg PO DAILY Cetirizine HCl [Zyrtec] 10 mg PO DAILY PRN PRN Reason: Allergy Symptoms Discharge Medication List Losartan [Cozaar] 50 mg PO BID 04/04/17 [History] Furosemide [Lasix] 40 mg PO DAILY 01/22/21 [History] Potassium Chloride [Klor-Con 20] 20 meq PO DAILY 01/22/21 [History] Cetirizine HCl [Zyrtec] 10 mg PO DAILY PRN 05/06/22 [History] Acetaminophen Tab [Tylenol] 650 mg PO Q6HR PRN tab 05/10/22 [Rx] Follow up Appointment(s)/Referral(s): Justo Dahl MD [Primary Care Provider] - 05/19/22 11:15 am [facility],Equipment [NON-STAFF] - As Needed (walker) Ricardo Briones Senior [NON-STAFF] - As Needed Shivam Cotton MD [STAFF PHYSICIAN] - 05/18/22 3:00 pm Patient Instructions/Handouts: *Surgery [facility] - Laparoscopy Discharge Instructions, Full Liquid Diet (DC) Activity/Diet/Wound Care/Special Instructions: No lifting over 10 pounds Shower daily. No soaking or tub baths for 2 weeks Very light activity until you are reevaluated at your follow up appointment with your surgeon Continue on a full liquid diet until seen by surgeon in office No straws, no carbonated beverages Discharge Disposition: HOME WITH HOME HEALTH SERVICES
[2022-05-12] MEDS ORDERED: FUROSEMIDE 40 MG TAB PO SCH (09:00)
--- NOTE | 2022-05-21 08:39 | CDI ---
Documentation Clarification Form Date: 05/10/2022 09:19:53 AM From: Ewa Raphael RN CCDS Admit Date: 05/06/2022 11:34:00 AM Patient Name: Anahi Naranjo Visit Number: [id number] Discharge Date: ATTENTION: The Clinical Documentation Specialists (CDI) and [facility] Coding Staff appreciate your assistance in clarifying documentation. Please respond to the clarification below the line at the bottom and electronically sign. The CDI & [facility] Coding staff will review the response and follow-up if needed. Please note: Queries are made part of the Legal Health Record. If you have any questions, please contact the author of this message via ITS. Dr. Avelino Boudreaux Your patient has the documented diagnosis of unspecified CHF 05/06, Cardiology consult. Additional information regarding the type, acuity of CHF is requested. History/Risk Factors: 82-year-old female presents to ED with nausea and vomiting. Medical History: HTN. Home medications: Cozaar 50mg PO BID; Lasix 40mg PO Daily. 05/06, H&P. Clinical Indicators: VS/Pulse OX: 05/06 B/P 184/104; HR 99; Temp 98.5F Oral; RR 18; SpO2 90% room air. BNP: 05/06 702 Echocardiogram Results: 05/06 Left ventricular ejection fraction is estimated at 50-55% Moderately increased left ventricular wall thickness. Anterior Septal hypokinesis. Preserved LV function with anteroseptal and apical hypokinesis. Chest X Ray: 05/06 Findings consistent with CHF exacerbation as there is cardiomegaly with bilateral mild interstitial edema noted. Cardiology Consult: 05/06 Chest Xray consistent with CHF exacerbation as there is cardiomegaly with bilateral mild interstitial edema. Treatment: 05/06 Echo ordered by Cardiology; 05/06 Cozaar 50mg PO BID NAGA; 05/06 Lopressor 5mg IVP x 1 (not given) In your professional opinion, can you please clarify the acuity and type of CHF if known? [x ] Chronic Diastolic Heart Failure (preserved EF) [ ] Acute on Chronic Diastolic Heart Failure (preserved EF) [ ] CHF ruled out [ ] Other, please specify [ ] Unable to determine (Template Last Revised: September 2020) MTDD
== END 2022-05-11 13:49 | disposition home health service (06) | DRG 327 ==
LOC: EC 07:29 → 4SSUR 11:34
PROVIDERS: ADMIT Surgery; ATTEND Surgery
PROC: 0D9670Z Drainage of Stomach with Drainage Device, Via Natural or Artificial Opening (ICD-10-PCS; principal; 2022-05-06)
PROC: 0BUT4JZ Supplement Diaphragm with Synthetic Substitute, Percutaneous Endoscopic Approach (ICD-10-PCS; 2022-05-06)
DX: K44.9 Diaphragmatic hernia without obstruction or gangrene (principal); I16.1 Hypertensive emergency; M47.16 Other spondylosis with myelopathy, lumbar region; I50.32 Chronic diastolic (congestive) heart failure; D72.829 Elevated white blood cell count, unspecified; E78.5 Hyperlipidemia, unspecified; E87.6 Hypokalemia; I11.0 Hypertensive heart disease with heart failure; I83.93 Asymptomatic varicose veins of bilateral lower extremities; K31.89 Other diseases of stomach and duodenum; H18.9 Unspecified disorder of cornea; K21.9 Gastro-esophageal reflux disease without esophagitis; R09.02 Hypoxemia; S90.31XA Contusion of right foot, initial encounter; W20.8XXA Other cause of strike by thrown, projected or falling object, initial encounter; Z20.822 Contact with and (suspected) exposure to COVID-19; I08.3 Combined rheumatic disorders of mitral, aortic and tricuspid valves; Z79.899 Other long term (current) drug therapy; Z82.0 Family history of epilepsy and other diseases of the nervous system; Z82.49 Family history of ischemic heart disease and other diseases of the circulatory system; Z82.5 Family history of asthma and other chronic lower respiratory diseases; Z87.891 Personal history of nicotine dependence; Z96.653 Presence of artificial knee joint, bilateral; Z80.9 Family history of malignant neoplasm, unspecified
CPT/HCPCS: 36415; 71046; 74177; 74210; 80053; 81001; 82150; 83690; 83735; 83880; 84484; 85025; 85027; 86850; 86900; 86901; 87635; 93005; 93306; 96361; 96374; 96375; 99285

== ENCOUNTER 2024-07-09 14:46 | Emergency (ER) | payer MEDICARE ==
--- NOTE | 2024-07-09 15:23 | ED ---
Fall HPI - General Chief Complaint: Fall Stated Complaint: Fall-Head Injury Time Seen by Provider: 07/09/24 15:00 Source: patient, EMS, RN notes reviewed Mode of arrival: EMS - History of Present Illness Initial Comments: This is an 84-year-old female presenting to the emergency department via EMS with c-collar in place for complaint of a fall. Patient states that she was at the library walking out to her car when she tripped over uneven pavement and hit her head. Patient denies loss of consciousness at the time of the event, nausea/vomiting, or double vision. Patient currently has a mild headache. Patient has mild bruising to her right hand. She denies blood thinner use. - Related Data Home Medications Medication Instructions Recorded Confirmed Losartan [Cozaar] 50 mg PO BID 04/04/17 05/06/22 Furosemide [Lasix] 40 mg PO DAILY 01/22/21 05/06/22 Potassium Chloride [Klor-Con 20] 20 meq PO DAILY 01/22/21 05/06/22 Cetirizine HCl [Zyrtec] 10 mg PO DAILY PRN 05/06/22 05/06/22 Previous Rx's Medication Instructions Recorded Acetaminophen Tab [Tylenol] 650 mg PO Q6HR PRN tab 05/10/22 Allergies Allergy/AdvReac Type Severity Reaction Status Date / Time No Known Allergies Allergy Verified 07/09/24 15:13 Review of Systems ROS Statement: Those systems with pertinent positive or pertinent negative responses have been documented in the HPI. ROS Other: All systems not noted in ROS Statement are negative. Past Medical History Past Medical History: Eye Disorder, Hypertension, Osteoarthritis (OA) Additional Past Medical History / Comment(s): corneal problems-seeing specialist, curvature of spine,back pain History of Any Multi-Drug Resistant Organisms: None Reported Past Surgical History: Adenoidectomy, Cholecystectomy, Hernia Repair, Joint Replacement, Tonsillectomy Additional Past Surgical History / Comment(s): both knees replaced, cataract surg., eye surg. for strabismus Past Anesthesia/Blood Transfusion Reactions: Previous Problems w/ Anesthesia Additional Past Anesthesia/Blood Transfusion Reaction / Comment(s): slow to wake up Past Psychological History: No Psychological Hx Reported Past Alcohol Use History: Occasional Past Drug Use History: None Reported - Past Family History Mother Family Medical History: Cancer General Exam General appearance: alert, in no apparent distress Expanded Head exam: Present: laceration (right sided forehead vertical 1.5 cm lac and horizontal 1.5 cm lac with noted abrasions over the right eye), abrasion, contusion. Absent: schulz's sign, tenderness of temporal artery, CSF rhinorrhea, CSF otorrhea Eye exam: Present: normal appearance, PERRL, EOMI, periorbital tenderness (right superior). Absent: scleral icterus, conjunctival injection, periorbital swelling ENT exam: Present: normal exam, mucous membranes moist Neck exam: Present: normal inspection. Absent: tenderness, meningismus, lymphadenopathy Respiratory exam: Present: normal lung sounds bilaterally. Absent: respiratory distress, wheezes, rales, rhonchi, stridor Cardiovascular Exam: Present: regular rate, normal rhythm, normal heart sounds. Absent: systolic murmur, diastolic murmur, rubs, gallop, clicks GI/Abdominal exam: Present: soft, normal bowel sounds. Absent: distended, tenderness, guarding, rebound, rigid Right Hand Wrist exam: Present: tenderness, swelling (thenar region, no anatomical snuffbox tenderness) Neuro motor exam: Present: wrist extension intact, thumb opposition intact, thumb IP flexion intact, thumb adduction intact Vascular: Present: radial pulse (2+). Absent: vascular compromise Back exam: Present: normal inspection Neurological exam: Present: alert, oriented X3, CN II-XII intact Skin exam: Present: warm, dry, intact, normal color. Absent: rash Course Vital Signs 07/09/24 07/09/24 07/09/24 15:01 15:10 15:51 Temperature 98.4 F 98.4 F Pulse Rate 97 97 81 Respiratory 18 16 18 Rate Blood Pressure 164/85 164/85 158/79 O2 Sat by Pulse 95 95 95 Oximetry 07/09/24 17:29 Temperature 97.9 F Pulse Rate 86 Respiratory 18 Rate Blood Pressure 169/89 O2 Sat by Pulse 96 Oximetry Procedures - Laceration Laceration #1 Consent Obtained: verbal consent Indication: laceration Site: face Size (cm): 2 Description: linear Depth: simple, single layer Anesthetic Used: lidocaine 1% (LET topical solution) Pre-repair: wound explored Type of Sutures: nylon Size of Sutures: 5-0 Number of Sutures: 1 Technique: simple, interrupted Patient Tolerated Procedure: well, no complications Laceration #2 Consent Obtained: verbal consent Indication: laceration Site: face Size (cm): 2 Description: linear Depth: simple, single layer Anesthetic Used: lidocaine 1% (topical LET solution) Pre-repair: wound explored Type of Sutures: nylon Size of Sutures: 5-0 Number of Sutures: 2 Technique: simple, interrupted Patient Tolerated Procedure: well, no complications Medical Decision Making - Medical Decision Making Was pt. sent in by a medical professional or institution (, STANLEY, LEARNING SUPPORT SERVICES DIRECTOR, urgent care, hospital, or longterm...) When possible be specific @ -No Did you speak to anyone other than the patient for history (EMS, parent, family, police, friend...)? What history was obtained from this source @ -No Did you review nursing and triage notes (agree or disagree)? Why? @ -I reviewed and agree with nursing and triage notes Were old charts reviewed (outside hosp., previous admission, EMS record, old EKG, old radiological studies, urgent care reports/EKG's, longterm records)? Report findings @ -No old charts were reviewed Differential Diagnosis (chest pain, altered mental status, abdominal pain women, abdominal pain men, vaginal bleeding, weakness, fever, dyspnea, syncope, headache, dizziness, GI bleed, back pain, seizure, CVA, palpatations, mental health, musculoskeletal)? @ -Contusion, laceration, subdural hematoma, facial bone fracture, epidural hematoma, this list not all inclusive EKG interpreted by me (3pts min.). @ -none X-rays interpreted by me (1pt min.). @ -None done CT interpreted by me (1pt min.). @ -CT of the facial bones without contrast reveals a nondisplaced nasal bone fracture CT of the head and C-spine reveals no acute bleed or mass effect and no acute cervical spine fracture U/S interpreted by me (1pt. min.). @ -None done What testing was considered but not performed or refused? (CT, X-rays, U/S, labs)? Why? @ -None What meds were considered but not given or refused? Why? @ -None Did you discuss the management of the patient with other professionals (professionals i.e. , STANLEY, LEARNING SUPPORT SERVICES DIRECTOR, lab, RT, psych nurse, social science teacher, field mechanical meter tester, teacher, industrial relations officer, case work aide)? Give summary @ -No Was smoking cessation discussed for >3mins.? @ -No Was critical care preformed (if so, how long)? @ -No Were there social determinants of health that impacted care today? How? (Homelessness, low income, unemployed, alcoholism, drug addiction, transportation, low edu. Level, literacy, decrease access to med. care, usp, rehab)? @ -No Was there de-escalation of care discussed even if they declined (Discuss DNR or withdrawal of care, Hospice)? DNR status @ -No What co-morbidities impacted this encounter? (DM, HTN, Smoking, COPD, CAD, Cancer, CVA, ARF, Chemo, Hep., AIDS, mental health diagnosis, sleep apnea, morbid obesity)? @ -None Was patient admitted / discharged? Hospital course, mention meds given and route, prescriptions, significant lab abnormalities, going to OR and other pertinent info. @ -Discharge. 84-year-old female for fall. Patient arrives via EMS with c- collar in place. Patient is neuro vastly intact with no acute neurological deficits. She is noted to have laceration and ecchymosis over the right eyebrow. She is provided with tetanus vaccination and Tylenol. CT of the facial bones reveals a nondisplaced nasal bone fracture. CT of the head and C- spine no acute process. Patient's lacerations were thoroughly cleansed with sterile water, let applied, and 3 simple interrupted sutures were placed with 5- 0 nylon. She is instructed to report back to the emergency department or to her primary care provider in approximately 5 days for suture removal. Continue Tylenol Motrin as needed addition to ice. discussed with Dr. Edwards Undiagnosed new problem with uncertain prognosis? @ -No Drug Therapy requiring intensive monitoring for toxicity (Heparin, Nitro, Insulin, Cardizem)? @ -No Were any procedures done? @ -laceration repair, see above procedure note Diagnosis/symptom? @ -fall, laceration, ecchymosis Acute, or Chronic, or Acute on Chronic? @ -acute Uncomplicated (without systemic symptoms) or Complicated (systemic symptoms)? @ -uncomplicated Side effects of treatment? @ -No Exacerbation, Progression, or Severe Exacerbation? @ -No Poses a threat to life or bodily function? How? (Chest pain, [place], [place], pneumonia, PE, COPD, DKA, ARF, appy, cholecystitis, CVA, Diverticulitis, Homicidal, Suici babatunde, threat to staff... and all critical care pts) @ -No Disposition Clinical Impression: Fall, Contusion, Laceration Disposition: HOME SELF-CARE Condition: Good Instructions (If sedation given, give patient instructions): Care For Your Stitches (ED), Fall Prevention for Older Adults (ED) Additional Instructions: Please return to the Emergency Department if symptoms worsen or any other concerns. Continue to use Tylenol as needed in addition to icing affected area. Return to the emergency department or to your primary care provider in approximately 5 days for suture removal. Is patient prescribed a controlled substance at d/c from ED?: No Referrals: Justo Dahl MD [Primary Care Provider] - 1-2 days Time of Disposition: 17:14
[2024-07-09] MEDS: ACETAMINOPHEN TAB 500 MG TAB PO STA (15:45)
[2024-07-09] MEDS: DIPH,PERTUS(ACELL)TETVAC-LF 0.5 ML VIAL IM ONE (15:47)
[2024-07-09 15:51] VITALS: RESP 18
--- NOTE | 2024-07-09 16:15 | CT ---
EXAMINATION TYPE: CT brain herlinda wo con DATE OF EXAM: 07/09/2024 COMPARISON: None CLINICAL INDICATION: Female, 84 years old with history of fall, injury, pain; PHH, fall, right sided facial and eye injury TECHNIQUE: CT scan of the head and cervical spine are performed without contrast. CT DLP: 972.[address] CTDI: mGy Automated exposure control for dose reduction was used. Findings: Head CT: Ventricles, basal cisterns and sulci over convexities are within normal limits for the patient's age and there is no mass, mass effect or shift of midline structures. No abnormal density is seen throughout the brain parenchyma and there is no acute intra or extra-axia l hemorrhage. Posterior fossa including the brainstem, fourth ventricle and cerebellar pontine angles are grossly n ormal. The intraorbital contents appear normal and symmetric. Visualized paranasal sinuses are well aerated. There is mild soft tissue swelling overlying the right orbit and frontal bone. There is no calvarial fracture. CT cervical spine: Craniovertebral junction relationships and prevertebral soft tissues are normal. The cervical vertebral segments are normal in height and alignment and there is no fracture subluxati on. The disc spaces are well-maintained in height and there is no significant degenerative disc disease. There is advanced facet arthropathy in the mid and lower cervical spine on the left. There is mild de generation of the vertebral joints in the lower cervical spine. The bony cervical canal is widely pat ent and there is no bony encroachment of the neural foramina. The paraspinal soft tissues unremarkable. IMPRESSION: 1. Head CT: No acute bleed or mass effect. Mild soft tissue swelling over the right orbit and frontal bone 2. CT cervical spine: No acute trauma. Degenerative changes as described above. [facility], , 07/09/2024 4:13 PM
--- NOTE | 2024-07-09 16:17 | CT ---
EXAMINATION TYPE: CT facial bones wo con DATE OF EXAM: 07/09/2024 COMPARISON: CLINICAL INDICATION: Female, 84 years old with history of fall, injury, pain; PHH, fall, right sided facial and eye injury TECHNIQUE: CT scan of the sinuses is performed without contrast, axial images are obtained, coronal reformatted images are also reviewed. CT DLP: 972.[address] CTDI: mGy Automated exposure control for dose reduction was used. FINDINGS: The paranasal sinuses including the frontal, ethmoid, sphenoid, and maxillary sinuses bila terally are well-aerated without abnormal opacification. The ostiomeatal complex is patent bilateral ly on the coronal images. Visualized portion of mastoid air cells show no abnormal opacification. The globes are intact bilate rally. There is mild soft tissue swelling over the right frontal bone and right orbit. There is a nondisplac ed nasal bone fracture IMPRESSION: 1. Nondisplaced nasal bone fracture. 2. Paranasal sinuses and mastoid air cells well aerated. [facility], Workstation: [email or web address] 07/09/2024 4:15 PM
[2024-07-09] MEDS: LIDOCAINE/EPINEPHR/TETRACAINE 5 ML BOTTLE TOPICAL ONE (16:35)
[2024-07-09 17:31] VITALS: BP 169/89; PULSE 86; TEMP 97.9
== END 2024-07-09 17:30 | disposition home or self-care (01) ==
LOC: EC 14:46
DX: S00.83XA Contusion of other part of head, initial encounter (principal); W01.0XXA Fall on same level from slipping, tripping and stumbling without subsequent striking against object, initial encounter; Y93.01 Activity, walking, marching and hiking; Z23 Encounter for immunization
CPT/HCPCS: 12013; 70450; 70486; 72125; 90471; 90715; 99284

== ENCOUNTER → 2024-09-25 | Outpatient (CLI) | payer MEDICARE ==
--- NOTE | 2024-09-25 14:14 | US ---
EXAMINATION TYPE: US carotid duplex BILAT DATE OF EXAM: 09/25/2024 COMPARISON: 10/06/2022 CLINICAL INDICATION: Female, 84 years old with history of I65.23 CAROTID STENOSIS; HTN- on meds per p atient. No hx TIA. Additional History: .... TECHNIQUE: Grayscale, color Doppler and spectral Doppler evaluation of the bilateral carotid systems and vertebral arteries. Indirect Doppler criteria was utilized. FINDINGS: EXAM MEASUREMENTS: RIGHT: Peak Systolic Velocity (PSV) cm/sec ----- Right CCA: 64.2 ----- Right ICA: 62.4 ----- Right ECA: 76.8 ICA/CCA ratio: 1.0 RIGHT: End Diastole cm/sec ----- Right CCA: 13.6 ----- Right ICA: 16.1 ----- Right ECA: 0.0 LEFT: Peak Systolic Velocity (PSV) cm/sec ----- Left CCA: 66.2 ----- Left ICA: 68.6 ----- Left ECA: 79.0 ICA/CCA ratio: 1.0 LEFT: End Diastole cm/sec ----- Left CCA: 13.0 ----- Left ICA: 20.6 ----- Left ECA: 0.0 VERTEBRALS (direction of flow): Right Vertebral: Antegrade Left Vertebral: Antegrade Rhythm: Normal MEDICAL INSTRUCTOR NOTES: Plaque in bilateral bulbs. No elevated velocities. Color Doppler imaging shows patency with blood flow throughout the carotid artery. Spectral waveforms are within normal limits. IMPRESSION: 1. Mild plaque in the carotid bulbs bilaterally resulting in less than 50% stenosis based on color an d grayscale imaging. 2. No hemodynamically significant stenosis in the common or internal carotid arteries bilaterally bas ed on peak systolic velocities and ratios. Criteria for Assigning % of Stenosis / Diameter reduction (Estimation based on the indirect measurements of the internal carotid artery velocities (ICA PSV). 1. Normal (no stenosis)=ICA PSV < 125 cm/s: ratio < 2.0: ICA EDV<40 cm/s. 2. Less than 50% stenosis=ICA PSV < 125 cm/s: ratio < 2.0: ICA EDV<40 cm/s. 3. 50 to 69% stenosis=ICA PSV of 125 to 230 cm/s: ration 2.0 ? 4.0: ICA EDV 40-100 cm/s. 4. Greater than 70% stenosis to near occlusion= ICA PSV > 230 cm/s: ratio > 4.0: ICA EDV > 100 cm/s. 5. Near occlusion= ICA PSV velocities may be low or undetectable: variable ratio and ICA EDV. 6. Total occlusion=unable to detect flow. [facility], , 09/25/2024 2:12 PM
== END | disposition home or self-care (01) ==
LOC: RADUSWWP 13:00
PROVIDERS: ATTEND Internal Medicine
DX: I65.23 Occlusion and stenosis of bilateral carotid arteries (principal); I10 Essential (primary) hypertension
CPT/HCPCS: 93880

== ENCOUNTER → 2024-10-17 | Outpatient (CLI) | payer MEDICARE ==
--- NOTE | 2024-10-19 09:56 | BD ---
EXAMINATION TYPE: Axial Bone Density DATE OF EXAM: 10/17/2024 CLINICAL HISTORY: 84 years old Female. ICD-10 CODE: M85.851 OSTEOPENIA , Additional History: Height: 4 ft 8 1/2 in Weight: 160 FRAX RISK QUESTIONS: Alcohol (3 or more units per day): no Family History (Parent hip fracture): no Glucocorticoids (More than 3mos): no (Ex: prednisone, prednisolone, methylprednisolone, dexamethasone, and hydrocortisone). History of Fracture in Adulthood: no Secondary Osteoporosis: 1. Type 1 Diabetes: no 2. Hyperthyroidism: no 3. Menopause before 45: unsure 4. Malnutrition: no 5. Chronic liver disease: no Rheumatoid Arthritis: no Current Tobacco Use: no RISK FACTORS HISTORY OF: Surgery to Spine/Hip(right/left)/Wrist (right/left): no MEDICATIONS: Thyroid Medications:no Osteoporosis Medications: no EXAM MEASUREMENTS: Bone mineral densitometry was performed using the Microtask System. Bone mineral density as measured about the Lumbar spine is: ----- L1-L4(G/cm2): 1.060 T Score Values are as follows: ----- L1: -0.6 ----- L2: -2.3 ----- L3: -1.5 ----- L4: 0.2 ----- L1-L4: -1.0 Z Score Values are as follows: ----- L1: 1.1 ----- L2: -0.6 ----- L3: 0.1 ----- L4: 1.9 ----- L1-L4: 0.7 Bone mineral density has: increased 7.6 % since study of: 2022 Bone mineral density about the R hip (g/cm2): 0.633 Bone mineral density about the L hip (g/cm2): 0.629 T Score values are as follows: -----R Neck: -2.9 -----L Neck: -2.9 -----R Total: -2.4 -----L Total: -2.6 Z Score values are as follows: -----R Neck: -0.7 -----L Neck: -0.7 -----R Total: -0.2 -----L Total: -0.5 Bone mineral density has: increased 0.3 % since study of: 2022 FRAX%s: The graph provided illustrates a 20.9% chance for a major osteoporotic fx and a 8.0 % chance for the hips probability for fx in 10 years time. IMPRESSION: Osteoporosis (T Score less than -2.5). There is increased fracture risk and therapy is usually indicated based on age. Re-Screen 1-2 years. NOTE: T-SCORE=SD OF THE YOUNG ADULT MEAN. [facility], , 10/19/2024 9:53 AM
== END | disposition home or self-care (01) ==
LOC: RADBDWWP 10:43
PROVIDERS: ATTEND Internal Medicine
DX: M81.0 Age-related osteoporosis without current pathological fracture (principal); M85.88 Other specified disorders of bone density and structure, other site; M85.851 Other specified disorders of bone density and structure, right thigh
CPT/HCPCS: 77080

== ENCOUNTER → 2024-10-25 | Outpatient (CLI) | payer MEDICARE ==
--- NOTE | 2024-10-26 10:19 | CA ---
Transthoracic Echo Report Name: Anahi Naranjo Age: 84 Gender: F : 1940 Exam Date: 10/25/2024 14:49 Exam Location: [facility] Ht (in): 56 Wt (lb): 158 Ordering Physician: Justo Dahl MD Attending/Referring Phys: Justo Dahl MD Linen Checker Carrie Soto RDCS Procedure CPT: Indications: I34.0 Nonrheumatic mitral valve regurg Cardiac Hx: Technical Quality: Fair Contrast 1: Total Dose (mL): Contrast 2: Total Dose (mL): MEASUREMENTS (Male / Female) Normal Values 2D ECHO LV Diastolic Diameter PLAX 3.9 cm 4.2 - 5.9 / 3.9 - 5.3 cm LV Systolic Diameter PLAX 2.7 cm IVS Diastolic Thickness 0.9 cm 0.6 - 1.0 / 0.6 - 0.9 cm LVPW Diastolic Thickness 1.0 cm 0.6 - 1.0 / 0.6 - 0.9 cm LV Relative Wall Thickness 0.5 LVOT Diameter 2.1 cm LV Diastolic Volume MOD BP 64.7 cm??? 67 - 155 / 56 - 104 cm??? LV Systolic Volume MOD BP 24.4 cm??? 22 - 58 / 19 - 49 cm??? LV Ejection Fraction MOD BP 62.3 % >= 55 % LV Cardiac Index MOD BP 1895.6 cm???/min???m??? LV Diastolic Volume MOD 4C 70.9 cm??? LV Systolic Volume MOD 4C 24.7 cm??? LV Ejection Fraction MOD 4C 65.2 % LV Cardiac Index MOD 4C 2173.6 cm???/min???m??? LV Diastolic Length 4C 7.0 cm LV Systolic Length 4C 5.6 cm LV Diastolic Volume MOD 2C 55.7 cm??? LV Systolic Volume MOD 2C 23.6 cm??? LV Ejection Fraction MOD 2C 57.7 % LV Cardiac Index MOD 2C 1511.5 cm???/min???m??? LV Diastolic Length 2C 6.6 cm LV Systolic Length 2C 5.5 cm LA Volume 60.7 cm??? 18 - 58 / 22 - 52 cm??? LA Volume Index 35.2 cm???/m??? 16 - 28 cm???/m??? DOPPLER AV Peak Velocity 140.4 cm/s AV Peak Gradient 7.9 mmHg AV Mean Velocity 96.3 cm/s AV Mean Gradient 4.2 mmHg AV Velocity Time Integral 30.6 cm LVOT Peak Velocity 106.8 cm/s LVOT Peak Gradient 4.6 mmHg LVOT Velocity Time Integral 21.1 cm LVOT Stroke Volume 74.4 cm??? LVOT Stroke Volume Index 46.3 ml/m??? LVOT Cardiac Index 3498.9 cm???/min???m??? AV Area Cont Eq vti 2.4 cm??? AV Area Cont Eq pk 2.7 cm??? MV Area PHT 4.4 cm??? Mitral E Point Velocity 82.7 cm/s Mitral A Point Velocity 108.4 cm/s Mitral E to A Ratio 0.8 MV Deceleration Time 173.8 ms TV Peak Velocity 273.1 cm/s Right Atrial Pressure 5.0 mmHg PV Peak Velocity 93.7 cm/s PV Peak Gradient 3.5 mmHg FINDINGS Left Ventricle Left ventricular ejection fraction is estimated at 60-65 %. Left ventricular cavity size normal. Left ventricular wall thickness normal. No obvious regional wall motion abnormalities. Right Ventricle Normal right ventricular size and function. Borderline elevated right ventricular systolic pressure 35mmHg. Right Atrium Normal right atrial size. Left Atrium Mildly increased left atrial volume. Mildly increased left atrial area. Mitral Valve Mitral valve thickened. Mitral annular calcification. No evidence for mitral valve prolapse. No mitral stenosis. [id number] mitral regurgitation. Aortic Valve Trileaflet aortic valve. No aortic valve stenosis or regurgitation. Tricuspid Valve Structurally normal tricuspid valve. No tricuspid stenosis. Mild tricuspid regurgitation. Pulmonic Valve Pulmonic valve not well visualized. Pericardium No pericardial effusion. Aorta Aortic annulus normal. Ascending aorta not well visualized. CONCLUSIONS Diagnosis mitral valve disease Preserved LV size and function Normal RV size and function 2+ mitral regurgitation Previewed by: Dr. Garrick Montes MD (Electronically Signed) Final Date: 26 October 2024 10:19
== END | disposition home or self-care (01) ==
LOC: RADECHMAIN 14:46
PROVIDERS: ATTEND Internal Medicine
DX: I34.0 Nonrheumatic mitral (valve) insufficiency (principal)
CPT/HCPCS: 93306